=== PATIENT | male | born 1950 | race Caucasian/White ===

== ENCOUNTER 2017-08-13 12:48 | Observation (INO) | payer MEDICARE ==
[2017-08-13] MEDS ORDERED: NITROGLYCERIN OINT 1 INCH/GM PACKET TOPICAL STA (13:06)
[2017-08-13] MEDS ORDERED: ASPIRIN 81 MG PO STA (13:06)
[2017-08-13] MEDS ORDERED: KETOROLAC 60 MG/2 ML VIAL IVP STA (13:06)
--- NOTE | 2017-08-13 13:07 | ED ---
General Adult HPI - General Chief complaint: Chest Pain Stated complaint: chest pain Time Seen by Provider: 08/13/17 13:00 Source: patient, EMS, RN notes reviewed Mode of arrival: EMS Limitations: no limitations - History of Present Illness Initial comments: This is a 67-year-old male who presents to the emergency department with past medical history significant for angina hypertension high cholesterol. Patient comes in today because he has had 3 episodes of chest pain. Patient states chest pain lasted a few minutes each time and is very sweaty when it occurs. Patient denies any shortness of breath per patient denies radiation of the pain. Patient denied nausea with the pain. Patient states currently he is pain -free. Patient states some of this might be anxiety because his is in the hospital and he does not want to be home alone tonight. Patient denies any recent fever chills or cough. Patient denies any headache patient denies numbness weakness. Patient denies any lightheadedness dizziness or near syncopal episode. Patient denies any abdominal pain. Patient denies any calf tenderness or leg swelling - Related Data Home Medications Medication Instructions Recorded Confirmed Aspirin 81 mg PO DAILY 11/27/14 11/28/14 Cholecalciferol [Vitamin D3] 2,000 unit PO DAILY@1200 11/27/14 11/28/14 LORazepam [Ativan] 1 mg PO TID 11/27/14 11/28/14 Lisinopril 40 mg PO BID 11/27/14 11/28/14 PARoxetine [Paxil] 20 mg PO BID 11/27/14 11/28/14 Pantoprazole Sodium 40 mg PO BID 11/27/14 11/28/14 amLODIPine [Norvasc] 10 mg PO DAILY 11/27/14 11/28/14 rOPINIRole HCL [Requip] 2 mg PO HS 11/27/14 11/28/14 traMADol HCl [Ultram] 50 mg PO TID 11/27/14 11/28/14 Fenofibrate,Micronized 134 mg PO DAILY 11/28/14 11/28/14 [Fenofibrate] Sodium Chloride [Saline Nasal Mist] 1 spray EA NOSTRIL BID 11/28/14 11/28/14 Testosterone Cypionate 1 ml SQ Q14D 11/28/14 11/28/14 [Depo-Testosterone] Trolamine Salicylate [Aspercreme] 1 applic TOPICAL QID 11/28/14 11/28/14 Previous Rx's Medication Instructions Recorded cloNIDine HCL [Catapres] 0.1 mg PO BID #60 tab 11/28/14 Allergies Allergy/AdvReac Type Severity Reaction Status Date / Time No Known Allergies Allergy Verified 08/13/17 12:54 Review of Systems ROS Statement: Those systems with pertinent positive or pertinent negative responses have been documented in the HPI. ROS Other: All systems not noted in ROS Statement are negative. Past Medical History Past Medical History: Chest Pain / Angina, GERD/Reflux, Hyperlipidemia, Hypertension Additional Past Medical History / Comment(s): Restless Leg Syndrome, sciatica, hernia History of Any Multi-Drug Resistant Organisms: None Reported Past Surgical History: Appendectomy, Cholecystectomy Additional Past Surgical History / Comment(s): Cyst Removed from Right Hand; Broken Ankle, Past Psychological History: Anxiety Smoking Status: Former smoker Past Alcohol Use History: Occasional Past Drug Use History: None Reported General Exam - General Exam Comments Initial Comments: GENERAL: Patient is well-developed and well-nourished. Patient is nontoxic and well- hydrated and is in no acute distress. ENT: Neck is soft and supple. No significant lymphadenopathy is noted. Oropharynx is clear. Moist mucous membranes. Neck has full range of motion without eliciting any pain. EYES: The sclera were anicteric and conjunctiva were pink and moist. Extraocular movements were intact and pupils were equal round and reactive to light. Eyelids were unremarkable. PULMONARY: Unlabored respirations. Good breath sounds bilaterally. No audible rales rhonchi or wheezing was noted. CARDIOVASCULAR: There is a regular rate and rhythm without any murmurs gallops or rubs. ABDOMEN: Soft and nontender with normal bowel sounds. No palpable organomegaly was noted. There is no palpable pulsatile mass. SKIN: Skin is clear with no lesions or rashes and otherwise unremarkable. NEUROLOGIC: Patient is alert and oriented x3. Cranial nerves II through XII are grossly intact. Motor and sensory are also intact. Normal speech, volume and content. Symmetrical smile. MUSCULOSKELETAL: Normal extremities with adequate strength and full range of motion. No lower extremity swelling or edema. No calf tenderness. LYMPHATICS: No significant lymphadenopathy is noted PSYCHIATRIC: Normal psychiatric evaluation. Limitations: no limitations Course Vital Signs 08/13/17 08/13/17 12:54 14:03 Temperature 98.7 F Pulse Rate 66 59 L Respiratory 20 18 Rate Blood Pressure 171/74 183/79 O2 Sat by Pulse 96 98 Oximetry Medical Decision Making - Medical Decision Making EKG shows normal sinus rhythm at 64 bpm TX interval 164 QRS is 84 Q-T intervals 4:30 QTC is 443 per patient's EKG shows no ST segment elevation or depression or T wave abnormalities are noted. Chest x-ray shows no acute abnormality. New. Patient is chest pain-free throughout his ED course. I spoke with Dr. Munoz he wants the patient admitted and have cardiology consult - Lab Data Result diagrams: 08/13/17 13:00 08/13/17 13:00 Lab Results 08/13/17 08/13/17 08/13/17 Range/Units 13:00 13:00 13:00 WBC 13.4 H (3.8-10.6) k/uL RBC 4.77 (4.30-5.90) m/uL Hgb 14.3 (13.0-17.5) gm/dL Hct 44.6 (39.0-53.0) % MCV 93.5 (80.0-100.0) fL MCH 30.0 (25.0-35.0) pg MCHC 32.1 (31.0-37.0) g/dL RDW 14.7 (11.5-15.5) % Plt Count 323 (150-450) k/uL Neutrophils % 78 % Lymphocytes % 11 % Monocytes % 8 % Eosinophils % 1 % Basophils % 0 % Neutrophils # 10.5 H (1.3-7.7) k/uL Lymphocytes # 1.4 (1.0-4.8) k/uL Monocytes # 1.1 H (0-1.0) k/uL Eosinophils # 0.1 (0-0.7) k/uL Basophils # 0.0 (0-0.2) k/uL PT (9.0-12.0) sec INR (<1.2) APTT (22.0-30.0) sec Sodium 140 (137-145) mmol/L Potassium 3.7 (3.5-5.1) mmol/L Chloride 105 (98-107) mmol/L Carbon Dioxide 27 (22-30) mmol/L Anion Gap 8 mmol/L BUN 13 (9-20) mg/dL Creatinine 0.98 (0.66-1.25) mg/dL Est GFR (MDRD) Af Amer >60 (>60 ml/min/1.73 sqM) Est GFR (MDRD) Non-Af >60 (>60 ml/min/1.73 sqM) Glucose 113 H (74-99) mg/dL Calcium 9.1 (8.4-10.2) mg/dL Magnesium 1.9 (1.6-2.3) mg/dL Total Bilirubin 0.3 (0.2-1.3) mg/dL AST 21 (17-59) U/L ALT 30 (21-72) U/L Alkaline Phosphatase 49 (38-126) U/L Total Creatine Kinase 92 (55-170) U/L CK-MB (CK-2) 1.7 (0.0-2.4) ng/mL CK-MB (CK-2) Rel Index 1.8 Troponin I <0.012 (0.000-0.034) ng/mL Total Protein 6.8 (6.3-8.2) g/dL Albumin 3.7 (3.5-5.0) g/dL 08/13/17 Range/Units 13:00 WBC (3.8-10.6) k/uL RBC (4.30-5.90) m/uL Hgb (13.0-17.5) gm/dL Hct (39.0-53.0) % MCV (80.0-100.0) fL MCH (25.0-35.0) pg MCHC (31.0-37.0) g/dL RDW (11.5-15.5) % Plt Count (150-450) k/uL Neutrophils % % Lymphocytes % % Monocytes % % Eosinophils % % Basophils % % Neutrophils # (1.3-7.7) k/uL Lymphocytes # (1.0-4.8) k/uL Monocytes # (0-1.0) k/uL Eosinophils # (0-0.7) k/uL Basophils # (0-0.2) k/uL PT 10.9 (9.0-12.0) sec INR 1.1 (<1.2) APTT 24.4 (22.0-30.0) sec Sodium (137-145) mmol/L Potassium (3.5-5.1) mmol/L Chloride (98-107) mmol/L Carbon Dioxide (22-30) mmol/L Anion Gap mmol/L BUN (9-20) mg/dL Creatinine (0.66-1.25) mg/dL Est GFR (MDRD) Af Amer (>60 ml/min/1.73 sqM) Est GFR (MDRD) Non-Af (>60 ml/min/1.73 sqM) Glucose (74-99) mg/dL Calcium (8.4-10.2) mg/dL Magnesium (1.6-2.3) mg/dL Total Bilirubin (0.2-1.3) mg/dL AST (17-59) U/L ALT (21-72) U/L Alkaline Phosphatase (38-126) U/L Total Creatine Kinase (55-170) U/L CK-MB (CK-2) (0.0-2.4) ng/mL CK-MB (CK-2) Rel Index Troponin I (0.000-0.034) ng/mL Total Protein (6.3-8.2) g/dL Albumin (3.5-5.0) g/dL Disposition Clinical Impression: Chest pain Disposition: ADMITTED IP TO THIS HOSP Referrals: Joshua Mancia DO [Primary Care Provider] - 1-2 days Time of Disposition: 14:21
[2017-08-13 13:23] LABS: Basophils % (A) 0 %; CH 30.4; CHCM 32.7; Eosinophils # (A) 0.1 k/uL (0-0.7); Eosinophils % (A) 1 %; HCT 44.6 % (39.0-53.0); HDW 2.43; HGB 14.3 gm/dL (13.0-17.5); Luc # (Auto) 0.18; Luc % (Auto) 1; Lymphocytes # (A) 1.4 k/uL (1.0-4.8); Lymphocytes % (A) 11 %; MCHC 32.1 g/dL (31.0-37.0); MCV 93.5 fL (80.0-100.0); Mean Platelet Volume 7.5; Monocytes # (A) 1.1 k/uL (0-1.0); Monocytes % (A) 8 %; Neutrophils # (A) 10.5 k/uL (1.3-7.7); Neutrophils % (A) 78 %; RBC 4.77 m/uL (4.30-5.90); RDW 14.7 % (11.5-15.5); WBC 13.4 k/uL (3.8-10.6)
[2017-08-13 13:33] LABS: INR 1.1 (<1.2); Partial Thromboplastin Time 24.4 sec (22.0-30.0); Prothrombin Time 10.9 sec (9.0-12.0)
[2017-08-13 13:35] LABS: ALT 30 U/L (21-72); AST 21 U/L (17-59); Alkaline Phosphatase 49 U/L (38-126); Anion Gap 8 mmol/L; Blood Urea Nitrogen 13 mg/dL (9-20); Calcium 9.1 mg/dL (8.4-10.2); Carbon Dioxide 27 mmol/L (22-30); Chloride 105 mmol/L (98-107); Glucose 113 mg/dL (74-99); Magnesium 1.9 mg/dL (1.6-2.3); Non-African American GFR(MDRD) >60 (>60 ml/min/1.73 sqM); Potassium 3.7 mmol/L (3.5-5.1); Sodium 140 mmol/L (137-145); Total Bilirubin 0.3 mg/dL (0.2-1.3); Total Protein 6.8 g/dL (6.3-8.2)
[2017-08-13 13:49] LABS: Creatine Kinase 92 U/L (55-170)
--- NOTE | 2017-08-13 13:50 | XR ---
EXAMINATION TYPE: XR chest 2V DATE OF EXAM: 08/13/2017 COMPARISON: 11/27/2014 INDICATION: Chest pain TECHNIQUE: Frontal and lateral views of the chest are obtained. FINDINGS: The heart size is normal. The pulmonary vasculature is normal. The lungs are clear. IMPRESSION: 1. No acute pulmonary process.
[2017-08-13 14:02] LABS: Creatine Kinase MB 1.7 ng/mL (0.0-2.4); Troponin I <0.012 ng/mL (0.000-0.034)
[2017-08-13] MEDS ORDERED: NITROGLYCERIN SL TABS 0.4 MG TAB SUBLINGUAL PRN (14:23)
--- NOTE | 2017-08-13 15:10 | P.HPIM ---
History of Present Illness 14-year-old male came in today with his 1 and complaints of low back pain radiating to the back of legs. Patient denied any weakness denied loss of bowel or bladder continence patient was complaining of chest pain in the left side of the chest happened nature lasted for 4 minutes about 6 x 10 in severity nonradiating patient is morbidly obese appears to have an anxiety episode give me a questionable history of nausea denied and diaphoresis took aspirin which helped his pain he believes. Patient's was admitted to my service earlier today. Patient denied any fever chills patient any cough runny nose. EKG did not show any significant acute ST-T wave changes patient is morbidly obese never tested for sleep apnea, his chest pain is nonpleuritic completely resolved at this point of time not associated with food. Review of Systems REVIEW OF SYSTEMS: CONSTITUTIONAL: No fever, no malaise, no fatigue. HEENT: No recent visual problems or hearing problems. Denied any sore throat. CARDIOVASCULAR: No orthopnea, PND, no palpitations, no syncope. PULMONARY: No shortness of breath, no cough, no hemoptysis. GASTROINTESTINAL: No diarrhea, no nausea, no vomiting, no abdominal pain. Normoactive bowel sounds. NEUROLOGICAL: No headaches, no weakness, no numbness. HEMATOLOGICAL: Denies any bleeding or petechiae. GENITOURINARY: Denies any burning micturition, frequency, or urgency. MUSCULOSKELETAL/RHEUMATOLOGICAL: Denies any joint pain, swelling, or any muscle pain. ENDOCRINE: Denies any polyuria or polydipsia. The rest of the 14-point review of systems is negative. Past Medical History Past Medical History: Chest Pain / Angina, GERD/Reflux, Hyperlipidemia, Hypertension Additional Past Medical History / Comment(s): Restless Leg Syndrome, sciatica, hernia History of Any Multi-Drug Resistant Organisms: None Reported Past Surgical History: Appendectomy, Cholecystectomy Additional Past Surgical History / Comment(s): Cyst Removed from Right Hand; Broken Ankle, Past Psychological History: Anxiety Smoking Status: Former smoker Past Alcohol Use History: Occasional Past Drug Use History: None Reported Medications and Allergies Home Medications Medication Instructions Recorded Confirmed Type LORazepam [Ativan] 1 mg PO TID 11/27/14 08/13/17 History Lisinopril 40 mg PO BID 11/27/14 08/13/17 History PARoxetine [Paxil] 20 mg PO BID 11/27/14 08/13/17 History amLODIPine [Norvasc] 10 mg PO DAILY 11/27/14 08/13/17 History traMADol HCl [Ultram] 50 mg PO TID 11/27/14 08/13/17 History Fenofibrate,Micronized 134 mg PO DAILY 11/28/14 08/13/17 History [Fenofibrate] Cetirizine HCl [Zyrtec] 10 mg PO DAILY 08/13/17 08/13/17 History Oxybutynin Chloride [Oxybutynin 15 mg PO DAILY 08/13/17 08/13/17 History Chloride ER] Ranitidine HCl [Zantac] 300 mg PO HS 08/13/17 08/13/17 History Tamsulosin HCl [Flomax] 0.8 mg PO DAILY 08/13/17 08/13/17 History Allergies Allergy/AdvReac Type Severity Reaction Status Date / Time atorvastatin [From Lipitor] Allergy Unknown Verified 08/13/17 14:55 Physical Exam Vitals: Vital Signs Temp Pulse Resp BP Pulse Ox 08/13/17 14:03 59 L 18 183/79 98 08/13/17 12:54 98.7 F 66 20 171/74 96 Intake and Output 08/13/17 08/13/17 08/13/17 06:59 14:59 22:59 Other: Weight 117.934 kg Patient Weight 08/14/17 06:59 Weight 117.934 kg PHYSICAL EXAMINATION: GENERAL: The patient is alert and oriented x3, not in any acute distress. Well developed, well nourished. HEENT: Pupils are round and equally reacting to light. EOMI. No scleral icterus. No conjunctival pallor. Normocephalic, atraumatic. No pharyngeal erythema. No thyromegaly. CARDIOVASCULAR: S1 and S2 present. No murmurs, rubs, or gallops. PULMONARY: Chest is clear to auscultation, no wheezing or crackles. ABDOMEN: Soft, nontender, nondistended, normoactive bowel sounds. No palpable organomegaly. MUSCULOSKELETAL: No joint swelling or deformity. EXTREMITIES: No cyanosis, clubbing, or pedal edema. NEUROLOGICAL: Gross neurological examination did not reveal any focal deficits. SKIN: No rashes. Results CBC & Chem 7: 08/13/17 13:00 08/13/17 13:00 Labs: Abnormal Lab Results - Last 24 Hours (Table) 08/13/17 08/13/17 Range/Units 13:00 13:00 WBC 13.4 H (3.8-10.6) k/uL Neutrophils # 10.5 H (1.3-7.7) k/uL Monocytes # 1.1 H (0-1.0) k/uL Glucose 113 H (74-99) mg/dL Assessment and Plan Plan: #1 chest pain: Patient will admitted to rule out a acute coronary syndromes will repeat 2 more sets of troponins, EKG, cardiology was consulted. #2 morbid obesity: Counseling was provided #3 chronic low back pain without any red flag signs patient will continue his pain medications and physical therapy as an outpatient. #4 hypertension #5 depression #6 gastroesophageal reflux disease #7 hyperlipidemia #8 leukocytosis: Reactive without any signs or symptoms of infection #9 benign prostatic hypertrophy For his chronic medical problems patient will be continued on appropriate home medications
[2017-08-13] MEDS ORDERED: LORazepam 2 MG/ML INJ IV STA (15:11)
[2017-08-13] MEDS ORDERED: hydrALAZINE HCL 20 MG/ML 1 ML VIAL IVP STA (15:11)
[2017-08-13] MEDS: NITROGLYCERIN OINT 1 INCH/GM PACKET TOPICAL SCH (17:51)
[2017-08-13] MEDS: traMADol 50 MG TAB PO SCH ×2 (18:22→22:04)
[2017-08-13 19:10] LABS: Creatine Kinase 87 U/L (55-170)
[2017-08-13 19:23] LABS: Creatine Kinase MB 1.4 ng/mL (0.0-2.4); Troponin I <0.012 ng/mL (0.000-0.034)
[2017-08-13] MEDS ORDERED: LISINOPRIL 20 MG TAB PO SCH (21:00)
[2017-08-13] MEDS ORDERED: FAMOTIDINE 20 MG TAB PO SCH (21:00)
[2017-08-13] MEDS: PARoxetine 20 MG TAB PO SCH (22:02)
[2017-08-14] MEDS ORDERED: hydrALAZINE HCL 20 MG/ML 1 ML VIAL IVP STA (00:24)
[2017-08-14] MEDS: LORazepam 1 MG TAB PO PRN ×2 (00:24→07:27)
[2017-08-14] MEDS ORDERED: HYDROmorphone 1 MG/ML 1 ML SYRINGE IVP PRN (00:33)
[2017-08-14] MEDS ORDERED: HYDROmorphone 0.5 MG/0.5 ML SYRINGE IVP PRN (01:16)
[2017-08-14 01:33] LABS: Cholesterol 168 mg/dL (<200); HDL Cholesterol 47 mg/dL (40-60)
[2017-08-14 01:38] LABS: Creatine Kinase 93 U/L (55-170)
[2017-08-14 01:51] LABS: Creatine Kinase MB 1.9 ng/mL (0.0-2.4); Troponin I <0.012 ng/mL (0.000-0.034)
[2017-08-14] MEDS: NITROGLYCERIN OINT 1 INCH/GM PACKET TOPICAL SCH ×3 (06:19→12:14)
[2017-08-14] MEDS: traMADol 50 MG TAB PO SCH (07:28)
[2017-08-14] MEDS ORDERED: OXYBUTYNIN 15 MG TAB.ER.24 PO SCH (09:00)
[2017-08-14] MEDS ORDERED: ASPIRIN 325 MG TAB PO SCH (09:00)
[2017-08-14] MEDS ORDERED: FENOFIBRATE 160 MG TAB PO SCH (09:00)
[2017-08-14] MEDS ORDERED: amLODIPine 10 MG TAB PO SCH (09:00)
[2017-08-14] MEDS ORDERED: TAMSULOSIN 0.4 MG CAP.ER.24H PO SCH (09:00)
[2017-08-14] MEDS ORDERED: LORATADINE 10 MG TAB PO SCH (09:00)
[2017-08-14 09:18] VITALS: TEMP 97.1
--- NOTE | 2017-08-14 09:33 | P.CRDCN ---
History of Present Illness Consult date: 08/14/17 Requesting physician: Alejandra Munoz Consult reason: chest pain Chief complaint: Chest pain History of present illness: This is a 67-year-old gentleman with history of hypertension, hyperlipidemia, obesity, who unfortunately just lost his this morning, he presented to the hospital yesterday with symptoms of chest discomfort. He describes his discomfort as a poking sensation in his left upper chest area that comes and goes. Urology consultation was requested for this as well as accelerated hypertension. EKG on arrival here showed a normal sinus rhythm with nonspecific ST-T wave changes. Chest x-ray did not reveal any acute cardiopulmonary process. The pressure on arrival 170/70 with a heart rate in the 60s, 96% on room air. The pressure this morning 178/80 with a heart rate in the 90s, temperature 97.5. White blood cell count 13.4, hemoglobin 14.3, potassium 3.7, BUN 13, troponins have been negative 3. creatinine 0.9. Cholesterol 168, LDL 103, triglycerides 89, HDL 47. As mentioned previously in this note, patient's this morning, he is quite emotional at the time of my examination, quite eager to be discharged home to be with family. Past Medical History Past Medical History: Asthma, Chest Pain / Angina, CVA/TIA, GERD/Reflux, Hyperlipidemia, Hypertension, Osteoarthritis (OA) Additional Past Medical History / Comment(s): Restless Leg Syndrome, sciatica, hiatal hernia, tia 8 years ago, past ulcers, past conscussion when younger and played football. History of Any Multi-Drug Resistant Organisms: None Reported Past Surgical History: Appendectomy, Cholecystectomy, Heart Catheterization, Tonsillectomy Additional Past Surgical History / Comment(s): Cyst Removed from Right Hand; Broken Ankle, colonoscopy/polypectomy(benign) Past Anesthesia/Blood Transfusion Reactions: Motion Sickness Additional Past Anesthesia/Blood Transfusion Reaction / Comment(s): clausterphobia Smoking Status: Former smoker - Past Family History Mother Family Medical History: Diabetes Mellitus Additional Family Medical History / Comment(s): at age 86 Father Family Medical History: Cancer Additional Family Medical History / Comment(s): throat cancer - age 50 Medications and Allergies Home Medications Medication Instructions Recorded Confirmed Type LORazepam [Ativan] 1 mg PO TID 11/27/14 08/13/17 History Lisinopril 40 mg PO BID 11/27/14 08/13/17 History PARoxetine [Paxil] 20 mg PO BID 11/27/14 08/13/17 History amLODIPine [Norvasc] 10 mg PO DAILY 11/27/14 08/13/17 History traMADol HCl [Ultram] 50 mg PO TID 11/27/14 08/13/17 History Fenofibrate,Micronized 134 mg PO DAILY 11/28/14 08/13/17 History [Fenofibrate] Cetirizine HCl [Zyrtec] 10 mg PO DAILY 08/13/17 08/13/17 History Oxybutynin Chloride [Oxybutynin 15 mg PO DAILY 08/13/17 08/13/17 History Chloride ER] Ranitidine HCl [Zantac] 300 mg PO HS 08/13/17 08/13/17 History Tamsulosin HCl [Flomax] 0.8 mg PO DAILY 08/13/17 08/13/17 History Allergies Allergy/AdvReac Type Severity Reaction Status Date / Time atorvastatin [From Lipitor] Allergy Unknown Verified 08/13/17 14:55 Physical Exam Vitals: Vital Signs Temp Pulse Pulse Resp BP BP Pulse Ox 08/14/17 07:30 97.1 F L 80 20 194/93 94 L 08/14/17 03:40 98 18 179/81 92 L 08/14/17 02:40 72 18 190/85 96 08/14/17 00:00 97.5 F L 79 18 208/79 96 08/13/17 20:00 97.3 F L 64 18 182/77 96 08/13/17 18:19 142/63 08/13/17 16:55 97.1 F L 82 16 172/75 97 08/13/17 16:13 98.5 F 08/13/17 16:00 77 18 168/66 95 08/13/17 15:33 62 18 190/80 98 08/13/17 15:00 62 18 200/87 98 08/13/17 14:03 59 L 18 183/79 98 08/13/17 12:54 98.7 F 66 20 171/74 96 Intake and Output 08/13/17 08/14/17 08/14/17 22:59 06:59 14:59 Intake Total 222 Output Total 400 Balance 222 -400 Intake: Oral 222 Output: Urine 400 Other: Voiding Method Toilet Toilet # Voids 1 2 Weight 119.4 kg PHYSICAL EXAMINATION: HEENT: Head is atraumatic, normocephalic. Pupils equal, round. Neck is supple. There is no elevated jugular venous pressure. HEART EXAMINATION: Heart S1, S2 normal. No murmur or gallop heard. CHEST EXAMINATION: Lungs are clear to auscultation and precussion. No chest wall tenderness is noted on palpation or with deep breathing. ABDOMEN: Soft, obese, nontender. Bowel sounds are heard. No organomegaly noted. EXTREMITIES:[ 2+ peripheral pulses with no evidence of peripheral edema and no calf tenderness noted]. NEUROLOGIC [patient is awake, alert and oriented -3.] . Results 08/13/17 13:00 08/13/17 13:00 Cardiac Enzymes 08/13/17 08/13/17 08/13/17 Range/Units 13:00 13:00 18:46 AST 21 (17-59) U/L CK-MB (CK-2) 1.7 1.4 (0.0-2.4) ng/mL Troponin I <0.012 <0.012 (0.000-0.034) ng/mL 08/14/17 Range/Units 00:27 AST (17-59) U/L CK-MB (CK-2) 1.9 (0.0-2.4) ng/mL Troponin I <0.012 (0.000-0.034) ng/mL Coagulation 08/13/17 Range/Units 13:00 PT 10.9 (9.0-12.0) sec APTT 24.4 (22.0-30.0) sec Lipids 08/14/17 Range/Units 00:27 Triglycerides 89 (<150) mg/dL Cholesterol 168 (<200) mg/dL HDL Cholesterol 47 (40-60) mg/dL CBC 08/13/17 Range/Units 13:00 WBC 13.4 H (3.8-10.6) k/uL RBC 4.77 (4.30-5.90) m/uL Hgb 14.3 (13.0-17.5) gm/dL Hct 44.6 (39.0-53.0) % Plt Count 323 (150-450) k/uL Comprehensive Metabolic Panel 08/13/17 Range/Units 13:00 Sodium 140 (137-145) mmol/L Potassium 3.7 (3.5-5.1) mmol/L Chloride 105 (98-107) mmol/L Carbon Dioxide 27 (22-30) mmol/L BUN 13 (9-20) mg/dL Creatinine 0.98 (0.66-1.25) mg/dL Glucose 113 H (74-99) mg/dL Calcium 9.1 (8.4-10.2) mg/dL AST 21 (17-59) U/L ALT 30 (21-72) U/L Alkaline Phosphatase 49 (38-126) U/L Total Protein 6.8 (6.3-8.2) g/dL Albumin 3.7 (3.5-5.0) g/dL Current Medications Generic Name Dose Route Start Last Admin Trade Name Freq PRN Reason Stop Dose Admin Amlodipine Besylate 10 mg 08/14/17 09:00 Norvasc PO DAILY [facility] Aspirin 81 mg 08/15/17 09:00 Aspirin PO DAILY [facility] Famotidine 40 mg 08/13/17 21:00 08/13/17 22:01 Pepcid PO 40 mg HS DESTINI Administration Fenofibrate 160 mg 08/14/17 09:00 Lofibra PO DAILY [facility] Hydromorphone HCl 0.5 mg 08/14/17 01:16 08/14/17 01:22 Dilaudid Syringe IVP 0.5 mg Q6HR PRN Administration Moderate to Severe Pain Lisinopril 40 mg 08/13/17 21:00 08/13/17 22:01 Zestril PO 40 mg BID DESTINI Administration Loratadine 10 mg 08/14/17 09:00 Claritin PO DAILY DESTINI Lorazepam 1 mg 08/13/17 15:09 08/14/17 07:27 Ativan PO 1 mg TID PRN Administration Anxiety Nitroglycerin 1 inch 08/13/17 18:00 08/14/17 06:20 Nitro-Bid Oint TOPICAL Not Given Q6HR [facility] Nitroglycerin 0.4 mg 08/13/17 14:23 Nitrostat SUBLINGUAL Q5M PRN Chest Pain Oxybutynin Chloride 15 mg 08/14/17 09:00 Ditropan Xl PO DAILY [facility] Paroxetine HCl 20 mg 08/13/17 21:00 08/13/17 22:02 Paxil PO 20 mg BID DESTINI Administration Tamsulosin HCl 0.8 mg 08/14/17 09:00 Flomax PO DAILY DESTINI Tramadol HCl 50 mg 08/13/17 16:00 08/14/17 07:28 Ultram PO 50 mg TID DESTINI Administration Intake and Output 08/13/17 08/14/17 08/14/17 22:59 06:59 14:59 Intake Total 222 Output Total 400 Balance 222 -400 Intake: Oral 222 Output: Urine 400 Other: Voiding Method Toilet Toilet # Voids 1 2 Weight 119.4 kg 08/13/17 13:00 08/13/17 13:00 EKG Interpretations (text) EKG shows a normal sinus rhythm with nonspecific ST-T wave changes. Assessment and Plan Plan: Assessment and plan #1 chest pain, atypical in nature, EKG shows normal sinus rhythm with no acute changes. Troponins are negative 3. Patient did have a stress test performed in 2014 that was negative for any reversible ischemia, he also had an echo performed at that time which revealed a normal left ventricular systolic function. #2 accelerated hypertension #3 history of hypertension #4 hyperlipidemia # 5 obesity #6 GERD #7 history of sciatica Plan We will request an echocardiogram with Doppler study be performed, we will also make medication adjustments to get more optimal blood pressure control. Patient is quite eager to be discharged home to be with his family as his just this morning. Recommend discharging the patient home after adjustments have been made in his blood pressure medications, he may have an outpatient stress test down the road in the next couple of weeks. Further recommendations to follow. DNP note has been reviewed, I agree with a documented findings and plan of care. Patient was seen and examined.
[2017-08-14] MEDS ORDERED: ALPRAZolam 0.25 MG TAB PO SCH (09:45)
[2017-08-14] MEDS ORDERED: cloNIDine HCL 0.2 MG TAB PO SCH ×2 (09:52→21:00)
[2017-08-14] MEDS ORDERED: LISINOPRIL 20 MG TAB PO SCH ×2 (10:00→21:00)
[2017-08-14] MEDS: PARoxetine 20 MG TAB PO SCH (10:12)
[2017-08-14 11:24] VITALS: BP 169/77; PULSE 88; RESP 16
--- NOTE | 2017-08-14 13:36 | ECHOF ---
Referral Reason:chest pain MEASUREMENTS -------- HEIGHT: 160.0 cm WEIGHT: 119.3 kg BP: RVIDd: 3.8 cm (< 3.3) IVSd: 1.6 cm (0.6 - 1.1) LVIDd: 4.7 cm (3.9 - 5.3) LVPWd: 0.9 cm (0.6 - 1.1) IVSs: 1.4 cm LVIDs: 3.2 cm LVPWs: 0.9 cm LAESV Index (A-L): 23.87 ml/m Ao Diam: 3.0 cm (2.0 - 3.7) LA Diam: 3.5 cm (2.7 - 3.8) MV E Francois: 0.51 m/s MV DecT: 129 ms MV A Francois: 0.95 m/s MV E/A Ratio: 0.54 RAP: 5.00 mmHg RVSP: 15.76 mmHg FINDINGS -------- Sinus rhythm. Morbid Obesity This was a techncally difficult study with suboptimal views, , Definity utilized for enhancement of images. There is mild concentric left ventricular hypertrophy. Overall left ventricular systolic function i s low-normal with, an EF between 50 - 55 %. The right ventricle is normal in size. Normal LA size by volume 22+/-6 ml/m2. The right atrial size is normal. The aortic valve was not well visualized. Mild mitral regurgitation is present. The tricuspid valve was not well visualized. The right ventricular systolic pressure, as measured b y Doppler, is 15.76mmHg. The pulmonic valve was not well visualized. The aortic root size is normal. Echo free space indicative of a pericardial fat pad. CONCLUSIONS -------- 1. Morbid Obesity 2. This was a techncally difficult study with suboptimal views, , Definity utilized for enhancement o f images. 3. There is mild concentric left ventricular hypertrophy. 4. Overall left ventricular systolic function is low-normal with, an EF between 50 - 55 %. 5. The right ventricle is normal in size. 6. The aortic valve was not well visualized. 7. The tricuspid valve was not well visualized. 8. The right ventricular systolic pressure, as measured by Doppler, is 15.76mmHg. 9. The pulmonic valve was not well visualized. 10. The aortic root size is normal. 11. Echo free space indicative of a pericardial fat pad. OPERATOR SPECIALIST COMMUNICATIONS: Millicetn Moy RDCS
--- NOTE | 2017-08-14 16:49 | P.DS ---
Providers Date of admission: 08/13/17 14:24 Attending physician: Alejandra Munoz Consults: 08/13/17 14:23 Consult Physician Urgent Consulting Provider: [facility] Consult Reason/Comments: Chest pain Do you want consulting provider notified?: Yes Primary care physician: Joshua Mancia Hospital Course: Was admitted for chest pain rule out acute coronary syndromes patient was evaluated by cardiology patient chest pain is most related to anxiety episode patient has a significant life event, spousal demise. And ALLERGIES recommending outpatient stress us patient blood pressures elevated and I'm adding Coreg to his regimen patient will be discharged today and will get outpatient stress test please refer to my dictation of H&P for further details of his other medical problems and hospitalization course Plan - Discharge Summary Discharge Rx Participant: No New Discharge Prescriptions: New Carvedilol [Coreg] 6.25 mg PO BID #60 tablet Lisinopril [Zestril] 20 mg PO BID tab Continue PARoxetine [Paxil] 20 mg PO BID LORazepam [Ativan] 1 mg PO TID amLODIPine [Norvasc] 10 mg PO DAILY traMADol HCl [Ultram] 50 mg PO TID Fenofibrate,Micronized [Fenofibrate] 134 mg PO DAILY Cetirizine HCl [Zyrtec] 10 mg PO DAILY Oxybutynin Chloride [Oxybutynin Chloride ER] 15 mg PO DAILY Ranitidine HCl [Zantac] 300 mg PO HS Tamsulosin HCl [Flomax] 0.8 mg PO DAILY Discontinued Lisinopril 40 mg PO BID Discharge Medication List LORazepam [Ativan] 1 mg PO TID 11/27/14 [History] PARoxetine [Paxil] 20 mg PO BID 11/27/14 [History] amLODIPine [Norvasc] 10 mg PO DAILY 11/27/14 [History] traMADol HCl [Ultram] 50 mg PO TID 11/27/14 [History] Fenofibrate,Micronized [Fenofibrate] 134 mg PO DAILY 11/28/14 [History] Cetirizine HCl [Zyrtec] 10 mg PO DAILY 08/13/17 [History] Oxybutynin Chloride [Oxybutynin Chloride ER] 15 mg PO DAILY 08/13/17 [History] Ranitidine HCl [Zantac] 300 mg PO HS 08/13/17 [History] Tamsulosin HCl [Flomax] 0.8 mg PO DAILY 08/13/17 [History] Carvedilol [Coreg] 6.25 mg PO BID #60 tablet 08/14/17 [Rx] Lisinopril [Zestril] 20 mg PO BID tab 08/14/17 [Rx] Follow up Appointment(s)/Referral(s): Maricel Wills MD [STAFF PHYSICIAN] - 2 Weeks (Follow up for planned outpatient stress test. Offic will call with an appointment date and time. ) Joshua Mancia DO [Primary Care Provider] - 08/19/17 10:20 am Patient Instructions/Handouts: Angina (DC) Discharge Disposition: HOME SELF-CARE
[2017-08-15] MEDS ORDERED: ASPIRIN 81 MG PO SCH (09:00)
== END 2017-08-14 12:29 | disposition home or self-care (01) ==
LOC: EC 12:48 → 6SEL 14:24
PROVIDERS: ADMIT Internal Medicine; ATTEND Internal Medicine
DX: R07.89 Other chest pain (principal); R61 Generalized hyperhidrosis; E66.01 Morbid (severe) obesity due to excess calories; Z68.42 Body mass index [BMI] 45.0-49.9, adult; G89.29 Other chronic pain; M54.5 Low back pain; I10 Essential (primary) hypertension; F32.9 Major depressive disorder, single episode, unspecified; K21.9 Gastro-esophageal reflux disease without esophagitis; E78.5 Hyperlipidemia, unspecified; E78.00 Pure hypercholesterolemia, unspecified; D72.829 Elevated white blood cell count, unspecified; N40.0 Benign prostatic hyperplasia without lower urinary tract symptoms; G25.81 Restless legs syndrome; M54.30 Sciatica, unspecified side; Z79.82 Long term (current) use of aspirin; Z79.899 Other long term (current) drug therapy; F41.9 Anxiety disorder, unspecified; Z87.891 Personal history of nicotine dependence; Z88.8 Allergy status to other drugs, medicaments and biological substances; Z86.73 Personal history of transient ischemic attack (TIA), and cerebral infarction without residual deficits; J45.909 Unspecified asthma, uncomplicated; M19.90 Unspecified osteoarthritis, unspecified site; Z83.3 Family history of diabetes mellitus; Z80.8 Family history of malignant neoplasm of other organs or systems
CPT/HCPCS: 99285; 96374; 96375 ×4; 96376; 36415; 93005; 85379; 80061; 80053; 82550 ×2; 82553 ×2; 83735; 84484 ×2; 85025; 85610; 85730; 71020; G0378 ×2; C8929; J2060; J0360 ×2; J1885; Q9957; J1170; 93306

== ENCOUNTER 2017-10-29 10:21 | Day surgery (SDC) | payer MEDICARE ==
[2017-10-22 09:27] VITALS: BMI 37.8
[~2017-10-29 10:21] MED LIST: ALPRAZolam 0.25 MG TAB PO PRN; ALPRAZolam 0.5 MG TAB PO PRN; ASPIRIN 325 MG TAB PO STA; NITROGLYCERIN SL TABS 0.4 MG TAB SUBLINGUAL PRN; SODIUM CHLORIDE 0.9% 1,000 ML in EMPTY BAG 1 BAG IV ONE
[2017-10-29 11:23] LABS: Basophils % (A) 1 %; Eosinophils # (A) 0.1 k/uL (0-0.7); Eosinophils % (A) 1 %; HCT 38.9 % (39.0-53.0); HGB 12.6 gm/dL (13.0-17.5); Lymphocytes # (A) 1.6 k/uL (1.0-4.8); Lymphocytes % (A) 19 %; MCH 30.4 pg (25.0-35.0); MCHC 32.5 g/dL (31.0-37.0); MCV 93.6 fL (80.0-100.0); Mean Platelet Volume 7.3; Monocytes # (A) 0.6 k/uL (0-1.0); Monocytes % (A) 7 %; Neutrophils % (A) 70 %; Platelet Count 303 k/uL (150-450); RBC 4.15 m/uL (4.30-5.90); WBC 8.5 k/uL (3.8-10.6)
[2017-10-29] MEDS ORDERED: LIDOCAINE 2% INJ 20 MG/ML (20 ML MDV) ONE (11:40)
[2017-10-29] MEDS ORDERED: fentaNYL (PF) 50 MCG/ML 2 ML AMP ONE (11:40)
[2017-10-29 11:43] LABS: Anion Gap 8 mmol/L; Blood Urea Nitrogen 22 mg/dL (9-20); Calcium 9.4 mg/dL (8.4-10.2); Carbon Dioxide 31 mmol/L (22-30); Chloride 100 mmol/L (98-107); Glucose 109 mg/dL (74-99); Potassium 4.1 mmol/L (3.5-5.1); Sodium 139 mmol/L (137-145)
[2017-10-29] MEDS ORDERED: MIDAZOLAM 2 MG/2 ML VIAL ONE (11:45)
[2017-10-29] MEDS ORDERED: fentaNYL (PF) 50 MCG/ML 2 ML AMP IVP ONE (11:47)
[2017-10-29] MEDS ORDERED: LIDOCAINE 2% INJ 20 MG/ML SQ ONE (11:48)
[2017-10-29] MEDS ORDERED: MIDAZOLAM 2 MG/2 ML VIAL IVP ONE (11:48)
[2017-10-29] MEDS ORDERED: IODIXANOL 320 MG/ML 100 ML INTRAARTER ONE (12:08)
[2017-10-29] MEDS ORDERED: SODIUM CHLORIDE 0.9% 1,000 ML IV SCH (12:15)
[2017-10-29] MEDS ORDERED: RX INFO: IV CONTRAST WAS GIVEN 1 EACH MISC MISCELLANE PRN (12:15)
--- NOTE | 2017-10-29 12:21 | P.PCN ---
Date of Procedure: 10/29/17 Postoperative Diagnosis: Chest pain and positive stress test Procedure(s) Performed: Left heart catheterization without left ventricular tomography Description of Procedure: HISTORY: This is a 67-year-old gentleman with history of hypertension, hypercholesteremia and obesity who has been having chest pains. Stress test was performed which showed reversible ischemia in the inferior segments. Patient is advised to have cardiac catheterization for definitive diagnosis. CONSENT:I have discussed the risks, benefits and alternative therapies for the above-mentioned procedure and for both sedation/analgesia as well as necessary blood product administration, if indicated, as they pertain to this patient. The patient has indicated understanding and acceptance of the risks and procedures discussed. PROCEDURE: Patient was brought to the lab in a fasting state. Patient was given some IV sedation. The right groin is infiltrated with lidocaine and right femoral artery was entered using Seldinger technique. A 6-Mohawk catheter was left in place and selective coronary arteriography and left ventriculography was performed. Patient tolerated the procedure well. Femoral angiogram was performed and Angio-Seal was applied for hemostasis. No immediate complications were noted and patient was transferred to [facility] in a stable condition Conscious Sedation: Versed 1 mg Fentanyl 50 g Duration 31minutes HEMODYNAMICS: The aortic pressure is about 130/80. Left ankle end-diastolic pressure is 16-20. There was no gradient across the aortic valve SELECTIVE CORONARY ARTERIOGRAPHY: LEFT MAIN: Normal length and free of any occlusive disease THE LEFT ANTERIOR DESCENDING CORONARY ARTERY:. This is a good caliber vessel giving rise to small septal and diagonal branches. The LAD and branches are free of occlusive disease THE LEFT CIRCUMFLEX AND IS CORONARY ARTERY:. This is a good caliber vessel giving rise to good-sized OM branch and also PDA. Seems to be dominant vessel. Free of any occlusive disease THE RIGHT CORONARY ARTERY:. This is a codominant vessel and good caliber, giving rise to PDA and PLV. Free of any occlusive disease LEFT VENTRICULOGRAPHY:. Not performed FINAL IMPRESSION:, Normal coronary arteries. Mildly elevated end-diastolic pressures PLAN: Maximum medical therapy and this factor modification PROGNOSIS:. Fair
[2017-10-29 20:22] VITALS: BP 124/71; PULSE 68; RESP 16; TEMP 98.4
== END 2017-10-29 20:15 | disposition home or self-care (01) ==
LOC: CATHCVL 10:21 → 3OBS 12:10 → CATHCVL 20:15
PROVIDERS: ATTEND Internal Medicine Cardiovascular Disease
DX: R94.39 Abnormal result of other cardiovascular function study (principal); R07.89 Other chest pain; I10 Essential (primary) hypertension; E78.00 Pure hypercholesterolemia, unspecified; E66.9 Obesity, unspecified; Z68.42 Body mass index [BMI] 45.0-49.9, adult; Z79.82 Long term (current) use of aspirin; Z79.52 Long term (current) use of systemic steroids; Z79.899 Other long term (current) drug therapy; Z87.891 Personal history of nicotine dependence
CPT/HCPCS: 93458; 80048; 85025; C1894; C1769; J2001; J2250; Q9967; J3010

== ENCOUNTER 2018-02-24 23:25 | Inpatient (IN) | payer MEDICARE ==
[2018-02-25] MEDS ORDERED: SODIUM CHLORIDE 0.9% 1,000 ML IV ONE (00:19)
[2018-02-25 00:30] LABS: Glucose,Whole Blood 133 mg/dL (75-99)
[2018-02-25 00:38] LABS: Basophils % (A) 0 %; Eosinophils # (A) 0.1 k/uL (0-0.7); Eosinophils % (A) 1 %; HCT 41.1 % (39.0-53.0); HGB 13.8 gm/dL (13.0-17.5); Lymphocytes % (A) 7 %; MCH 29.5 pg (25.0-35.0); MCHC 33.6 g/dL (31.0-37.0); MCV 87.8 fL (80.0-100.0); Monocytes # (A) 0.7 k/uL (0-1.0); Monocytes % (A) 5 %; Neutrophils # (A) 12.4 k/uL (1.3-7.7); Neutrophils % (A) 86 %; Platelet Count 236 k/uL (150-450); RBC 4.68 m/uL (4.30-5.90); RDW 12.8 % (11.5-15.5); WBC 14.3 k/uL (3.8-10.6)
[2018-02-25 00:50] LABS: INR 1.2 (<1.2); Prothrombin Time 11.2 sec (9.0-12.0)
[2018-02-25 00:51] LABS: Partial Thromboplastin Time 21.8 sec (22.0-30.0)
--- NOTE | 2018-02-25 00:51 | ED ---
General Adult HPI - General Chief complaint: Recheck/Abnormal Lab/Rx Stated complaint: Withdrawals Time Seen by Provider: 02/25/18 00:04 Source: family Mode of arrival: wheelchair Limitations: no limitations - History of Present Illness Initial comments: Years old gentleman presents with a confusion family said he has been on them larger dose of Neurontin that caused him some swelling of the legs that dose was decreased and then finally it was discontinued he has been more confused for the last few weeks he repeats over and over and over asking for help family said he also has a history of anxiety and they think his anxiety is getting worse. When I asked him myself he said he just don't feel right he denies any headaches no blurred vision no stiff neck no chest pain or shortness of breath no abdominal pain - Related Data Home Medications Medication Instructions Recorded Confirmed PARoxetine [Paxil] 20 mg PO BID 11/27/14 10/29/17 amLODIPine [Norvasc] 10 mg PO 1400 11/27/14 10/29/17 Fenofibrate,Micronized 134 mg PO HS 11/28/14 10/29/17 [Fenofibrate] Cetirizine HCl [Zyrtec] 10 mg PO DAILY 08/13/17 10/29/17 Oxybutynin Chloride [Oxybutynin 30 mg PO HS 08/13/17 10/29/17 Chloride ER] Ranitidine HCl [Zantac] 300 mg PO HS 08/13/17 10/29/17 Tamsulosin HCl [Flomax] 0.8 mg PO HS 08/13/17 10/29/17 Aspirin [Adult Low Dose Aspirin EC] 81 mg PO QAM 10/22/17 10/29/17 Hydrochlorothiazide 25 mg PO DAILY 10/22/17 10/29/17 Melatonin 3 mg PO HS PRN 10/22/17 10/29/17 Naproxen 500 mg PO BID 10/22/17 10/29/17 traMADol HCl [Ultram] 50 mg PO TID 10/22/17 10/29/17 Baclofen 10 mg PO TID 10/26/17 10/29/17 Gabapentin [Neurontin] 300 mg PO TID 10/26/17 10/29/17 Previous Rx's Medication Instructions Recorded Carvedilol [Coreg] 6.25 mg PO BID #60 tablet 08/14/17 Lisinopril [Zestril] 20 mg PO BID tab 08/14/17 Allergies Allergy/AdvReac Type Severity Reaction Status Date / Time atorvastatin [From Lipitor] Allergy Unknown Verified 10/22/17 09:11 codeine Allergy Unknown Verified 10/22/17 09:11 Review of Systems ROS Statement: Those systems with pertinent positive or pertinent negative responses have been documented in the HPI. ROS Other: All systems not noted in ROS Statement are negative. Past Medical History Past Medical History: Asthma, COPD, CVA/TIA, GERD/Reflux, Hyperlipidemia, Osteoarthritis (OA), Skin Disorder Additional Past Medical History / Comment(s): Restless Leg Syndrome, sciatica, hiatal hernia, TIA 8 years ago, ulcers,see Dr Jordan H&P, varicose veins, dry skin on wrist, History of Any Multi-Drug Resistant Organisms: None Reported Past Surgical History: Appendectomy, Cholecystectomy, Heart Catheterization, Tonsillectomy Additional Past Surgical History / Comment(s): Cyst Removed from Right Hand, Past Anesthesia/Blood Transfusion Reactions: Motion Sickness Additional Past Anesthesia/Blood Transfusion Reaction / Comment(s): claustrophobia Past Psychological History: Anxiety Smoking Status: Former smoker Past Alcohol Use History: Occasional Past Drug Use History: None Reported - Past Family History Mother Family Medical History: Diabetes Mellitus Additional Family Medical History / Comment(s): at age 86 Father Family Medical History: Cancer Additional Family Medical History / Comment(s): throat cancer General Exam - General Exam Comments Initial Comments: General: The patient is barely awake, he does answer the questions, they are appropriate. He seems very tired, lethargic, GCS is 15 Skin: Skin is warm and dry and no rashes or lesions are noted. Eye: Pupils are equal, round and reactive to light, extra-ocular movements are intact; there is normal conjunctiva bilaterally. Ears, nose, mouth and throat: There are moist mucous membranes and no oral lesions. Neck: The neck is supple, there is no tenderness Cardiovascular: There is a regular rate and rhythm. No murmur, rub or gallop is appreciated. Distant S1 and S2 Respiratory: To auscultation bilateral, decrease breath sounds bilaterally patient has a poor inspiratory effort Gastrointestinal: Soft, non-distended, non-tender abdomen without masses or organomegaly noted. There is no rebound or guarding present. Bowel sounds are unremarkable. Back: There is no tenderness to palpation in the midline. There is no obvious deformity. Musculoskeletal: Normal ROM, no tenderness, There is no pedal edema. There is no calf tenderness or swelling. No cords were appreciated. Neurological: CN II-XII intact, Cranial nerves III through XII are intact. There are no obvious motor or sensory deficits. Coordination appears grossly intact. Speech is normal. Psychiatric: Cooperative, seems depressed, tired to evaluate him from psychiatry standpoint barely talk, he hardly talks Limitations: no limitations Course Vital Signs 02/24/18 23:52 Temperature 97.5 F L Pulse Rate 63 Respiratory 20 Rate Blood Pressure 116/59 O2 Sat by Pulse 94 L Oximetry , Patient's white count is 14.3, creatinine is 1.8 chest x-ray is normal KUB is normal head CT is normal he still quite confused and admitted to Dr. Aponte's service and will consult neurology EKG Findings - EKG Comments: EKG Findings:: EKG is sinus bradycardia with a ventricular rate of 51 IL interval is 152 QRS duration is 88 QT/QTC is 490/451 review of this EKG does not reveal any ST elevation or ST depression Medical Decision Making - Lab Data Result diagrams: 02/25/18 00:23 Lab Results 02/25/18 02/25/18 02/25/18 Range/Units 00:23 00:23 00:28 WBC 14.3 H (3.8-10.6) k/uL RBC 4.68 (4.30-5.90) m/uL Hgb 13.8 (13.0-17.5) gm/dL Hct 41.1 (39.0-53.0) % MCV 87.8 (80.0-100.0) fL MCH 29.5 (25.0-35.0) pg MCHC 33.6 (31.0-37.0) g/dL RDW 12.8 (11.5-15.5) % Plt Count 236 (150-450) k/uL Neutrophils % 86 % Lymphocytes % 7 % Monocytes % 5 % Eosinophils % 1 % Basophils % 0 % Neutrophils # 12.4 H (1.3-7.7) k/uL Lymphocytes # 1.0 (1.0-4.8) k/uL Monocytes # 0.7 (0-1.0) k/uL Eosinophils # 0.1 (0-0.7) k/uL Basophils # 0.0 (0-0.2) k/uL PT 11.2 (9.0-12.0) sec INR 1.2 H (<1.2) APTT 21.8 L (22.0-30.0) sec POC Glucose (mg/dL) 133 H (75-99) mg/dL POC Glu Cabinet Worker ID Cori Smith Disposition Clinical Impression: Change in mental status Disposition: ADMITTED IP TO THIS HOSP Condition: Good Referrals: Vincent Valentin MD [Primary Care Provider] - 1-2 days
[2018-02-25] MEDS ORDERED: ONDANSETRON 4 MG/2 ML VIAL ONE (01:50)
[2018-02-25] MEDS ORDERED: ACETAMINOPHEN TAB 325 MG TAB PO PRN (05:41)
[2018-02-25] MEDS ORDERED: NALOXONE 0.4 MG/ML 1 ML VIAL IV PRN (05:41)
[2018-02-25] MEDS ORDERED: ONDANSETRON 4 MG/2 ML VIAL IVP PRN (05:41)
[2018-02-25 05:44] LABS: Albumin 4.5 g/dL (3.5-5.0); Calcium 9.8 mg/dL (8.4-10.2); Creatine Kinase 74 U/L (55-170); Creatine Kinase MB 1.2 ng/mL (0.0-2.4); Total Bilirubin 0.9 mg/dL (0.2-1.3); Total Protein 7.7 g/dL (6.3-8.2); Troponin I <0.012 ng/mL (0.000-0.034)
[2018-02-25] MEDS ORDERED: MELATONIN 3 MG TABLET PO PRN (05:46)
[2018-02-25 05:59] LABS: Potassium 4.2 mmol/L (3.5-5.1)
--- NOTE | 2018-02-25 06:28 | XR ---
PROCEDURE: FILM CXR 2 VIEWS HISTORY: 67-year-old male with weakness and pain. COMPARISON: Chest radiograph 11/27/2014 TECHNIQUE: Frontal and lateral views of the chest were obtained. FINDINGS: Limited by body habitus and technique. Cardiomediastinal silhouette is stable. No evidence of focal consolidation, pleural effusion, or pneumothorax Degenerative changes in the spine. IMPRESSION: Clear lungs.
--- NOTE | 2018-02-25 06:28 | XR ---
PROCEDURE: FILM ABDOMEN HISTORY: 67-year-old male with weakness, pain, and vomiting COMPARISON: None TECHNIQUE: Frontal supine view of the abdomen was obtained. FINDINGS: Limited by body habitus and positioning. Nonspecific bowel gas pattern. 5 millimeter rounded calcification overlying the right hemipelvis may only represents a phlebolith. Ureteral calculus is in the differential. Degenerative changes of the spine. IMPRESSION: Nonspecific bowel gas pattern. 5 millimeter rounded calcification overlying the right hemipelvis may only represents a phlebolith. Ureteral calculus is in the differential.
--- NOTE | 2018-02-25 06:29 | CT ---
PROCEDURE: CT HEAD Without Contrast HISTORY: 67-year-old male with altered mental status. COMPARISON: None TECHNIQUE: CT imaging was obtained through the head. Coronal and sagittal reformations were performed. DOSE: Total Exam volume computed tomography dose index (CTDIvol) = 57.4 mGy and Dose Length Product (DLP) = 1047.1 mGY-cm. This CT exam was performed using one or more of the following dose reduction techniques: automated exposure control, adjustment of the mA and/or kV according to patient size, and/or use of iterative reconstruction technique. FINDINGS: There is no evidence of acute intracranial hemorrhage, mass effect, or midline shift. The ventricles, sulci, and cisternal spaces are within normal limits for age. The swift-white matter differentiation is preserved. Bilateral white matter hypodensities, nonspecific but likely due to chronic microvascular ischemic changes. Intracranial arterial calcifications. The bony structures are intact. Non--aggressive appearing lucent bone lesion in the anterior wall of the right frontal sinus. Visualized paranasal sinuses and mastoid air cells are clear. Visualized portions of the orbits are within normal limits. IMPRESSION: 1. No CT evidence of acute intracranial abnormality. 2. Other findings as detailed above.
[2018-02-25] MEDS: PARoxetine 20 MG TAB PO SCH ×2 (08:19→21:17)
[2018-02-25] MEDS: ASPIRIN 81 MG PO SCH (08:19)
[2018-02-25] MEDS: CARVEDILOL 6.25 MG TAB PO SCH ×2 (08:22→15:06)
[2018-02-25] MEDS ORDERED: BACLOFEN 10 MG TAB PO SCH (09:00)
[2018-02-25] MEDS ORDERED: HYDROCHLOROTHIAZIDE 25 MG TAB PO SCH (09:00)
[2018-02-25] MEDS ORDERED: GABAPENTIN 300 MG CAP PO SCH (09:00)
[2018-02-25] MEDS ORDERED: LISINOPRIL 20 MG TAB PO SCH (09:00)
[2018-02-25] MEDS ORDERED: LORATADINE 10 MG TAB PO SCH (09:00)
[2018-02-25] MEDS ORDERED: LACTULOSE 20 GM/30 ML CUP PO PRN (15:00)
[2018-02-25] MEDS ORDERED: MAGNESIUM HYDROXIDE 2,400 MG/10 ML CUP PO PRN (15:00)
[2018-02-25] MEDS ORDERED: CALCIUM CARBONATE 500 MG CHEWABLE PO PRN (15:00)
[2018-02-25] MEDS ORDERED: ALPRAZolam 0.25 MG TAB PO PRN (15:00)
[2018-02-25] MEDS: amLODIPine 10 MG TAB PO SCH (15:06)
[2018-02-25] MEDS: LACTATED RINGERS 1,000 ML IV SCH (15:09)
[2018-02-25] MEDS: BACLOFEN 10 MG TAB PO SCH ×2 (15:28→21:17)
--- NOTE | 2018-02-25 16:08 | HP ---
HISTORY AND PHYSICAL DATE OF ADMISSION: 02/25/18 DATE OF SERVICE: 02/25/18 PRESENTING COMPLAINT: Lethargic. HISTORY OF PRESENTING COMPLAINT: This is a 67-year-old patient of Dr. Valentin whose chronic stable medical conditions include COPD, GERD, hyperlipidemia, osteoarthritis, prostate disorder, restless legs syndrome, chronic low back pain with bilateral sciatica, hiatal hernia. The patient has been having lower extremity swelling for which his dose of Neurontin was cut back. The patient was brought in the hospital being lethargic and somewhat delirious as per the history obtained by the nurse. The patient is lethargic right now, does wake up. He knows he is in the hospital, but then dozes off easily. The patient denies any weakness or any headache. No fevers reported. In the ER, patient's BUN and creatinine is noted to be 42 and 1.8. There was no fever reported. The patient is difficult to get any more history as he is rather lethargic. REVIEW OF SYSTEMS: Cannot be done as patient is lethargic. 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 PAST SURGICAL HISTORY: Appendectomy, cholecystectomy, cardiac catheterization in October of 2017. Cardiac cath was normal. Cyst removed from the right hand, colonoscopy, polypectomy. PSYCH HISTORY: Anxiety and depression. SOCIAL HISTORY: Lives by himself. The patient's spouse last year. The patient smoked a pack and a half for close to 55 years. Stopped in 1986. Lives by himself. Alcohol occasionally. FAMILY HISTORY: Diabetes. HOME MEDICATIONS: 1. Flomax 0.8 mg q.h.s. 2. Potassium 20 mEq a day. 3. Hydrochlorothiazide 50 mg p.o. daily. 4. Tricor 134 mg q.h.s. 5. Melatonin 3 mg p.o. q.h.s. p.r.n. 6. Lisinopril 40 mg p.o. daily. 7. Ultram 50 mg p.o. t.i.d. 8. Oxybutynin ER 50 mg q.h.s. 9. Zyrtec 10 mg p.o. daily. 10.Aspirin 81 mg p.o. daily. 11.Norvasc 10 mg p.o. daily. 12.Zantac 300 mg q.h.s. 13.Paxil 20 mg p.o. daily. 14.Naproxen 500 mg p.o. b.i.d. 15.Flonase 1 spray each nostril daily. 16.Coreg 6.25 p.o. b.i.d. 17.Baclofen 5 mg p.o. t.i.d. 18.Ativan 0.5 mg q.6h p.r.n. 19.Desyrel 100 mg q.h.s. ALLERGIES: TO LIPITOR AND CODEINE. PHYSICAL EXAMINATION: Vital signs on presentation, temperature 97.5, pulse 63, respiratory 20, blood pressure 116/59, pulse ox 94% on room air. GENERAL APPEARANCE: Well built, BMI 43.1. Lying in bed, lethargic but arousable. EYES: Pupils are equal. Conjunctivae normal. HEENT: External appearance of nose and ears normal. Oral cavity normal. NECK: JVD unable to assess. Mass not palpable. RESPIRATORY: Slightly decreased breath sounds. CARDIOVASCULAR: 1st and second sounds normal. No edema. ABDOMEN: Distended, soft. Liver and spleen not palpable. LYMPHATICS: No lymph nodes palpable in the neck and axilla. PSYCHIATRY: Cannot really assess, but patient knows that he is in the hospital. NEUROLOGICAL: Pupils equal. No facial asymmetry. Moving all 4 limbs. INVESTIGATIONS: White count 14.3, hemoglobin 13.8, potassium 4.2, BUN 42, creatinine 1.80. The patient's blood work from October of this year shows a BUN of 22, creatinine 0.97. CT scan of the brain nil acute. ASSESSMENT: 1. This is a patient who presents with being very lethargic. It may be noted that the patient has acute renal failure and patient is on Neurontin and this will definitely make the patient lethargic. At the same time, patient has also been on Ultram and Zyrtec and Ativan p.r.n. and Desyrel and this does all add up to the patient being rather drowsy. 2. Acute renal failure, exact cause unknown, but the patient is on MARSHALL inhibitor, hydrochlorothiazide will be discontinued for now. 3. Morbid obesity BMI 43.1. 4. Chronic obstructive pulmonary disease. 5. Gastroesophageal reflux disease. 6. Hyperlipidemia. 7. Primary osteoarthritis. 8. Prostate disorder. 9. Restless leg syndrome. 10.Hiatal hernia hiatal hernia. PLAN: At this point, patient will be kept on IV fluids to improve his renal function. We will cut back the dose of Neurontin 200 mg 3 times a day in the setting of renal failure. The patient's hydrochlorothiazide will be discontinued and so will be patient's MARSHALL inhibitor and naproxen, will all be discontinued. The patient will be given IV fluids. Will do neuro checks with aspiration precautions. Expect the patient to turn around. Keep on the neuro checks. Copy to Dr. Valentin. DURAN / CHEMA: [id number] /
--- NOTE | 2018-02-25 16:53 | EEG ---
ELECTROENCEPHALOGRAM REPORT DATE OF EE02/25/2018. REFERRING PHYSICIAN: Dr. Valadez. CONSULTING/INTERPRETING PHYSICIAN: Dr. Param Leon MD ELECTROENCEPHALOGRAPHIC EXAMINATION REPORT: INDICATION FOR EXAMINATION: This patient is a 67-year-old male being evaluated for altered mental status and confusion. Patient also with increased anxiety disorder. AGE: [age]. EEG FINDINGS: A routine 21 channel awake digital EEG recording was accomplished utilizing the 10-20 international system with bipolar and referential montages. The background activity in the most alert resting state consists of a low to medium amplitude, fairly well- developed and well sustained 7 Hz activity over the posterior head regions. This posterior rhythm attenuates to eye opening. There is a small amount of low amplitude 18-20 Hz beta activity seen maximally over the anterior head regions. Muscle and movement artifact was observed on a few occasions during the tracing. Hyperventilation was not performed. Photic stimulation at flash frequencies of 2-30 Hz produced a minimal occipital driving response. No epileptiform discharges were seen. IMPRESSION: This EEG is within normal limits for the patient's age. The EEG failed to reveal any focal, lateralized, or epileptiform abnormalities. Clinical correlation is recommended. MMODL / IJN: [id number] /
--- NOTE | 2018-02-25 17:21 | P.CNNES ---
History of Present Illness Consult date: 02/25/18 Reason for Consult: This patient admitted with altered mental status. History of Present Illness: This patient is a 67-year-old right-handed white male who apparently over the last week has been showing increasing symptoms of confusion and disorientation at home. Apparently he lives in his own home in the has several of his children check on him on a regular basis. Recently the daughters have found him to be very confused and disoriented. He was screaming for help the other day and apparently was unclear why he was in need of immediate help. It was felt he may have had a side effect to one of his medications producing some of the confusion and it was discontinued. Apparently he has been using Neurontin which caused some side effects with bilateral leg swelling. This was discontinued but he continues to have evidence of increase anxiety and confusion. His symptoms have been progressing over the last few weeks. Family finally convinced him to come to the emergency room for further evaluation. He was seen in the emergency room at [facility] yesterday by physician Dr. Leavitt. A computed tomography scan of the brain was ordered which revealed no acute intracranial abnormality. Patient continued to have confusion and for this reason he was admitted to hospital for further evaluation. Patient appears at bedside to be very withdrawn and depressed. Apparently he lost his in July and has still symptoms of grief and episodes of depression. He has not been walking apparently for the last few days which is also unusual for him as he normally walks and gets about on his own. Apparently he was brought in in a wheelchair but had been walking previously. He does complain of some low back pain symptoms recently and he will be re-examined for this as well. The patient is very withdrawn and makes very poor eye contact. He does appear to be depressed at this time. We have recommended a psychiatry consultation for the patient. He does have a slightly elevated white count which is being closely monitored. The patient is not a very good historian. He states he does get angry and upset easily and cannot explain why he becomes withdrawn. As noted computed tomography scan of the brain failed to reveal any acute changes. We have recommended further testing with MRI of the brain and MRI of the lumbar spine for further evaluation. He did undergo routine EEG today which is reviewed and was within normal limits for his age. The patient at this time appears to be withdrawn and mildly confused. This may be a form of pseudodementia. We will await further evaluation by psychiatry. The patient states he is not sure why his legs are weak and has not been up or walking since admission to the hospital. We have recommended physical therapy to see the patient as well as Dr. Gay for possible inpatient rehab. His overall prognosis at this time remains guarded. Neurology is now been consulted for further evaluation and recommendations. Review of Systems Constitutional: Denies chills, Denies fever Eyes: denies blurred vision, denies pain Ears, nose, mouth and throat: Denies headache, Denies sore throat Cardiovascular: Denies chest pain, Denies shortness of breath Respiratory: Denies cough Gastrointestinal: Denies abdominal pain, Denies diarrhea, Denies nausea, Denies vomiting Musculoskeletal: Denies myalgias Integumentary: Denies pruritus, Denies rash Neurological: Reports change in mentation, Reports confusion, Reports gait dysfunction (This letter), Reports memory loss, Reports tingling, Denies numbness, Denies weakness Psychiatric: Reports disorientation, Reports hopelessness, Reports mood swings, Denies anxiety, Denies depression Endocrine: Denies fatigue, Denies weight change Past Medical History Past Medical History: Asthma, COPD, CVA/TIA, GERD/Reflux, Hyperlipidemia, Osteoarthritis (OA), Prostate Disorder, Skin Disorder Additional Past Medical History / Comment(s): Recent bilateral leg swelling which pt states is d/t neurontin, restless Leg Syndrome, low back pain and bilateral sciatica, hiatal hernia, stomach ulcer, TIA 8 years ago, vertigo, past concussion from football injury. History of Any Multi-Drug Resistant Organisms: None Reported Past Surgical History: Appendectomy, Cholecystectomy, Heart Catheterization, Tonsillectomy Additional Past Surgical History / Comment(s): Cardiac cath 10/29/17 normal, cyst removed from right hand, colonoscopy/polypectomy Past Anesthesia/Blood Transfusion Reactions: Motion Sickness Additional Past Anesthesia/Blood Transfusion Reaction / Comment(s): claustrophobia Smoking Status: Former smoker - Past Family History Mother Family Medical History: Diabetes Mellitus Additional Family Medical History / Comment(s): Mother at the age of 86yrs. Father Family Medical History: Cancer Additional Family Medical History / Comment(s): Throat cancer and at the age of 50yrs. Medications and Allergies Home Medications Medication Instructions Recorded Confirmed Type PARoxetine [Paxil] 20 mg PO QAM 11/27/14 02/25/18 History amLODIPine [Norvasc] 10 mg PO DAILY 11/27/14 02/25/18 History Fenofibrate,Micronized 134 mg PO HS 11/28/14 02/25/18 History [Fenofibrate] Cetirizine HCl [Zyrtec] 10 mg PO DAILY 08/13/17 02/25/18 History Oxybutynin Chloride [Oxybutynin 15 mg PO HS 08/13/17 02/25/18 History Chloride ER] Ranitidine HCl [Zantac] 300 mg PO HS 08/13/17 02/25/18 History Tamsulosin HCl [Flomax] 0.8 mg PO HS 08/13/17 02/25/18 History Carvedilol [Coreg] 6.25 mg PO BID #60 tablet 08/14/17 02/25/18 Rx Aspirin [Adult Low Dose Aspirin EC] 81 mg PO QAM 10/22/17 02/25/18 History Melatonin 3 mg PO HS PRN 10/22/17 02/25/18 History Naproxen 500 mg PO BID 10/22/17 02/25/18 History traMADol HCl [Ultram] 50 mg PO TID 10/22/17 02/25/18 History Baclofen 5 mg PO TID 10/26/17 02/25/18 History Fluticasone Nasal [place] [Flonase 1 spray EA NOSTRIL DAILY 02/25/18 02/25/18 History Nasal [place]] Hydrochlorothiazide [Hydrodiuril] 50 mg PO DAILY 02/25/18 02/25/18 History LORazepam [Ativan] 0.5 mg PO Q6H PRN 02/25/18 02/25/18 History Lisinopril 40 mg PO DAILY 02/25/18 02/25/18 History Potassium Chloride [Klor-Con 20] 20 meq PO DAILY 02/25/18 02/25/18 History traZODone HCL [Desyrel] 100 mg PO HS 02/25/18 02/25/18 History Allergies Allergy/AdvReac Type Severity Reaction Status Date / Time atorvastatin [From Lipitor] Allergy Unknown Verified 02/25/18 08:05 codeine Allergy Unknown Verified 02/25/18 08:05 Physical Examination - Vital Signs Vital Signs: Vital Signs Temp Pulse Pulse Resp BP BP Pulse Ox 02/25/18 14:42 97.5 F L 62 14 148/68 98 02/25/18 08:23 65 02/25/18 08:00 65 16 02/25/18 06:01 98.0 F 58 L 16 125/67 97 02/24/18 23:52 97.5 F L 63 20 116/59 94 L Intake and Output 02/25/18 02/25/18 02/25/18 06:59 14:59 22:59 Intake Total 1080 Balance 1080 Intake: Intake, IV Titration 600 Amount Sodium Chloride 0.9% 1, 600 000 ml @ 75 mls/hr IV . [id number] ONE Rx#:[id number] Oral 480 Other: Voiding Method Diaper # Voids 1 Weight 117.48 kg - Constitutional General appearance: average body habitus, cooperative - EENT EENT: PERRL, mucous membranes moist - Respiratory Respiratory: lungs clear, normal breath sounds - Cardiovascular Cardiovascular: regular rate, normal S1, normal S2 Extremities: no peripheral edema bilaterally - Gastrointestinal Gastrointestinal: normoactive bowel sounds - Neurologic Cranial nerve examination: PERRL, EOMI, VFF, V1/V2/V3 grossly intact, face symmetric, intact gag reflex, intact corneal reflex, normal palatal elevation Speech examination: intact Sensorimotor examination: intact Motor examination - right side: 3/5: hip flexors, knee extensors, dorsiflexion, toe extension (EHL), plantarflexion, 4/5: biceps, triceps, wrist flexion, wrist extension, development chemist Motor examination - left side: 3/5: hip flexors, knee extensors, dorsiflexion, toe extension (EHL), plantarflexion, 4/5: biceps, triceps, wrist flexion, wrist extension, development chemist Detailed sensory examination: intact Reflex and gait examination: intact Reflexes: 1+: ankle, bicep, knee, tricep - Musculoskeletal Musculoskeletal: no pain - Psychiatric Psychiatric: mood/affect appropriate, cooperative Results - Laboratory Findings CBC and BMP: 02/25/18 00:23 02/25/18 00:23 Abnormal Lab Findings: Abnormal Labs 02/25/18 02/25/18 02/25/18 00:23 00:23 00:23 WBC 14.3 H Neutrophils # 12.4 H INR 1.2 H APTT 21.8 L Chloride 95 L BUN 42 H Creatinine 1.80 H Glucose 133 H POC Glucose (mg/dL) Alkaline Phosphatase 31 L 02/25/18 00:28 WBC Neutrophils # INR APTT Chloride BUN Creatinine Glucose POC Glucose (mg/dL) 133 H Alkaline Phosphatase Assessment and Plan (1) Acute encephalopathy Current Visit: Yes Status: Acute Code(s): G93.40 - ENCEPHALOPATHY, UNSPECIFIED SNOMED Code(s): 04597026 (2) Depression Current Visit: Yes Status: Acute Code(s): F32.9 - MAJOR DEPRESSIVE DISORDER , SINGLE EPISODE, UNSPECIFIED SNOMED Code(s): 55702272 (3) Bilateral leg weakness Current Visit: Yes Status: Acute Code(s): R29.898 - OTH SYMPTOMS AND SIGNS INVOLVING THE MUSCULOSKELETAL SYSTEM SNOMED Code(s): 0748726 (4) Hyperlipidemia Current Visit: No Status: Acute Code(s): E78.5 - HYPERLIPIDEMIA, UNSPECIFIED SNOMED Code(s): 72784269 Plan: This patient is a 67-year-old male admitted with acute change in mentation in mental status at home over the last week. He has become more confused and disoriented as per family's report. Patient was brought into the emergency room yesterday and underwent a computed tomography scan of the brain results of which are noted above. We are recommending the patient undergo an MRI of the brain and lumbar spine for further evaluation. He is also presenting with leg weakness of unknown etiology. He did undergo routine EEG which was reviewed today and is normal for his age. He does appear to be depressed on questioning today and we are recommending a psychiatry consultation for further evaluation of acute depression. He has been depressed after losing his in July of last year. We have recommended a physical therapy consultation as well as evaluation by Dr. Gay for possible subacute rehab. His overall prognosis at this time remains guarded. We will await the results of his neuroimaging studies and we will give further recommendations. We will follow this patient closely with you. Time with Patient: Greater than 30
[2018-02-25] MEDS ORDERED: FENOFIBRATE 160 MG TAB PO SCH ×2 (21:00→21:20)
[2018-02-25] MEDS: OXYBUTYNIN 15 MG TAB.ER.24 PO SCH (21:16)
[2018-02-25] MEDS: FAMOTIDINE 20 MG TAB PO SCH (21:16)
[2018-02-25] MEDS: TAMSULOSIN 0.4 MG CAP.ER.24H PO SCH (21:17)
[2018-02-26] MEDS: LACTATED RINGERS 1,000 ML IV SCH ×3 (00:44→15:15)
--- NOTE | 2018-02-26 06:23 | P.CONS ---
History of Present Illness - Chief Complaint Mental status change and lower extremity weakness - History of Present Illness I had the opportunity to see patient for inpatient rehab consultation with regard to gait disturbance. He was admitted to [facility] February 25 with mental status change, confusion, disorientation, visual change and lower extremity weakness. Seen by Dr. Ramses Beth. Head CT and chest x-rays negative. KUB with nonspecific gas pattern only. PT prescribed and I added OT and speech. Previous functional history as elicited from patient: 67-year-old right-handed white male who is , lives in one floor home alone. Retired. Describes independent with own cooking, laundry, driving, standing shower and gait without device. Denies tobacco. Occasional drink. PMD is Dr. Valentin. Family history of father with throat cancer. Review of Systems Review of systems: ENT: Denies sneezes or discharge. Eyes: Describes poor vision more so right eye than left eye. Cardiac: Denies chest pain or palpitation. Pulmonary: Denies cough or shortness of breath. Gastrointestinal: Denies nausea, emesis, constipation, diarrhea. Genitourinary: Denies discharge or frequency. Musculoskeletal: Denies muscle or bone aches. Neurologic: Generalized weakness but especially lowers. Endocrine: Denies shakes or sweats. Oncology: Denies cancers. Dermatologic: Denies rash, itching, pruritus. ALLERGY/immunology: Denies sneezes, rashes. Past Medical History Past Medical History: Asthma, COPD, CVA/TIA, GERD/Reflux, Hyperlipidemia, Osteoarthritis (OA), Prostate Disorder, Skin Disorder Additional Past Medical History / Comment(s): Recent bilateral leg swelling which pt states is d/t neurontin, restless Leg Syndrome, low back pain and bilateral sciatica, hiatal hernia, stomach ulcer, TIA 8 years ago, vertigo, past concussion from football injury. History of Any Multi-Drug Resistant Organisms: None Reported Past Surgical History: Appendectomy, Cholecystectomy, Heart Catheterization, Tonsillectomy Additional Past Surgical History / Comment(s): Cardiac cath 10/29/17 normal, cyst removed from right hand, colonoscopy/polypectomy Past Anesthesia/Blood Transfusion Reactions: Motion Sickness Additional Past Anesthesia/Blood Transfusion Reaction / Comm: claustrophobia Smoking Status: Former smoker - Past Family History Mother Family Medical History: Diabetes Mellitus Additional Family Medical History / Comment(s): Mother at the age of 86yrs. Father Family Medical History: Cancer Additional Family Medical History / Comment(s): Throat cancer and at the age of 50yrs. Medications and Allergies Home Medications Medication Instructions Recorded Confirmed Type PARoxetine [Paxil] 20 mg PO QAM 11/27/14 02/25/18 History amLODIPine [Norvasc] 10 mg PO DAILY 11/27/14 02/25/18 History Fenofibrate,Micronized 134 mg PO HS 11/28/14 02/25/18 History [Fenofibrate] Cetirizine HCl [Zyrtec] 10 mg PO DAILY 08/13/17 02/25/18 History Oxybutynin Chloride [Oxybutynin 15 mg PO HS 08/13/17 02/25/18 History Chloride ER] Ranitidine HCl [Zantac] 300 mg PO HS 08/13/17 02/25/18 History Tamsulosin HCl [Flomax] 0.8 mg PO HS 08/13/17 02/25/18 History Carvedilol [Coreg] 6.25 mg PO BID #60 tablet 08/14/17 02/25/18 Rx Aspirin [Adult Low Dose Aspirin EC] 81 mg PO QAM 10/22/17 02/25/18 History Melatonin 3 mg PO HS PRN 10/22/17 02/25/18 History Naproxen 500 mg PO BID 10/22/17 02/25/18 History traMADol HCl [Ultram] 50 mg PO TID 10/22/17 02/25/18 History Baclofen 5 mg PO TID 10/26/17 02/25/18 History Fluticasone Nasal [place] [Flonase 1 spray EA NOSTRIL DAILY 02/25/18 02/25/18 History Nasal [place]] Hydrochlorothiazide [Hydrodiuril] 50 mg PO DAILY 02/25/18 02/25/18 History LORazepam [Ativan] 0.5 mg PO Q6H PRN 02/25/18 02/25/18 History Lisinopril 40 mg PO DAILY 02/25/18 02/25/18 History Potassium Chloride [Klor-Con 20] 20 meq PO DAILY 02/25/18 02/25/18 History traZODone HCL [Desyrel] 100 mg PO HS 02/25/18 02/25/18 History Allergies Allergy/AdvReac Type Severity Reaction Status Date / Time atorvastatin [From Lipitor] Allergy Unknown Verified 02/25/18 08:05 codeine Allergy Unknown Verified 02/25/18 08:05 Physical Exam Vitals: Vital Signs Temp Pulse Pulse Resp BP Pulse Ox 02/26/18 05:52 98.2 F 70 18 125/72 98 02/25/18 22:45 18 02/25/18 21:41 93 L 02/25/18 21:11 98.2 F 69 18 124/70 98 02/25/18 16:00 62 14 02/25/18 15:00 98 02/25/18 14:42 97.5 F L 62 14 148/68 98 02/25/18 08:23 65 02/25/18 08:00 65 16 Intake and Output 02/25/18 02/25/18 02/26/18 14:59 22:59 06:59 Intake Total 1080 Balance 1080 Intake: Intake, IV Titration 600 Amount Sodium Chloride 0.9% 1, 600 000 ml @ 75 mls/hr IV . [id number] ONE Rx#:[id number] Oral 480 Other: Voiding Method Diaper Diaper # Voids 1 3 3 Skin: Good color, texture, turgor. General: Overweight build and comfortable appearance. Head: Normocephalic, atraumatic. Eyes: Symmetric. Pupils equal round. Ears: Symmetric. Hearing within normal limits. Mouth: Clear. Neck: Supple. Carotid without bruit. Cardiac: Regular rate and rhythm. Lungs: Clear anteriorly and posteriorly. Abdomen: Soft active nontender. Extremities: Normal tone. Neurological: Mental status: Alert, cooperative, depressed. Cranial nerves: Symmetric facial tone and trapezius. Motor: Poor movement all 4 limbs. Sensation: Intact throughout. DTRs: Absent throughout. Mobility: Would require definite assistance, most likely total for bed mobility. Results CBC & Chem 7: 02/25/18 00:23 02/25/18 00:23 Chest x-ray: report reviewed (Negative.) Abdominal x-ray: report reviewed (KUB with nonspecific gas pattern.) CT Scan - head: report reviewed (Negative.) Assessment and Plan (1) Acute encephalopathy Current Visit: Yes Status: Acute Code(s): G93.40 - ENCEPHALOPATHY, UNSPECIFIED SNOMED Code(s): 93786268 Plan: Depression: 1. Gait disturbance. 2. Mental status change with acute encephalopathy. 3. Lower extremity weakness. 4. COPD with asthma. 5. Dyslipidemia. 6. Jennifer arthritis. 7. GERD. Comments and plan: PT prescribed and I added OT and speech. Follow therapies with yourself. Rehab prognosis currently guarded due to patient's poor attitude.
[2018-02-26 08:34] LABS: Appearance,Urine Turbid (Clear); Bacteria,Urine Moderate /hpf; Bilirubin,Urine Negative (Negative); Blood,Urine Small (Negative); Color,Urine Yellow; Glucose,Urine (UA) Negative (Negative); Ketones,Urine Negative (Negative); Leukocyte Esterase,Urine Large (Negative); Nitrite,Urine Negative (Negative); PH, Urine 7.5 (5.0-8.0); Protein,Urine Trace (Negative); RBC,Urine 21 /hpf (0-5); Specific Gravity,Urine 1.013 (1.001-1.035); WBC,Urine >182 /hpf (0-5)
[2018-02-26 09:00] LABS: Amphetamine Screen,Urine Not Detected (NotDetected); Barbiturate Screen,Urine Not Detected (NotDetected); Benzodiazepines Screen,Urine Not Detected (NotDetected); Cocaine Screen,Urine Not Detected (NotDetected); Methadone Screen, Urine Not Detected (NotDetected); Opiate Screen,Urine Not Detected (NotDetected); Oxycodone Screen, Urine Not Detected (NotDetected); Phencyclidine Screen,Urine Not Detected (NotDetected); Tricyclic Antidepressant,Urine Not Detected (NotDetected); Urn Cannabinoid Scrn Not Detected (NotDetected)
[2018-02-26] MEDS: CARVEDILOL 6.25 MG TAB PO SCH ×2 (09:21→17:01)
[2018-02-26] MEDS: PARoxetine 20 MG TAB PO SCH ×2 (09:21→20:44)
[2018-02-26] MEDS: GABAPENTIN 100 MG CAP PO SCH ×5 (09:22→20:43)
[2018-02-26] MEDS: ASPIRIN 81 MG PO SCH (09:23)
[2018-02-26] MEDS: BACLOFEN 10 MG TAB PO SCH ×3 (09:23→20:43)
[2018-02-26] MEDS ORDERED: LORazepam 2 MG/ML INJ IM ONE (11:00)
[2018-02-26 11:51] LABS: Calcium 9.5 mg/dL (8.4-10.2); Potassium 3.9 mmol/L (3.5-5.1)
[2018-02-26 12:23] LABS: PSA Annual Screen 0.81 ng/mL (0.00-4.00)
[2018-02-26] MEDS: amLODIPine 10 MG TAB PO SCH (13:02)
--- NOTE | 2018-02-26 14:41 | P.CN ---
Psychiatric Consult - . Consult date: 02/26/18 Consult:: 02/26/18 14:27 I tried to see this patient twice this afternoon for psych consult regarding "acute depression". Apparently patient is still at MRI and is not available. I have reviewed the chart and talk to the nurse. The neurology and medical consult notes indicate patient has encephalopathy. Computed tomography scan of the brain shows bilateral white matter hypodensities, nonspecific but likely due to chronic microvascular ischemic changes, EEG has been within normal limits. Patient's nurse told me that patient's had about 6 months ago and has been depressed. He was on Paxil 20 mg twice a day, tramadol 50 mg 3 times a day baclofen 10 mg 3 times a day and Neurontin 300 mg 3 times a day. But now he is on baclofen 5 mg 3 times a day Neurontin 100 mg 3 times a day and Paxil 20 mg twice a day. Generally speaking "depression" does not start acutely. But, sadness, disappointment and grief do. Encephalopathy, especially when combined with VAMP MARKER suppressants like narcotics (tramadol), baclofen and Neurontin can cause clinical presentation which can be hard to distinguish from depression. Suggestion: Continuing tramadol baclofen and Neurontin can make encephalopathy worse. Once the patient recovers from encephalopathy, if you think he is still depressed, I will come and reevaluate him.
--- NOTE | 2018-02-26 15:31 | MR ---
EXAMINATION TYPE: MR brain/lspine wo con DATE OF EXAM: 02/26/2018 COMPARISON: NONE HISTORY: Patient with altered mental status and lethargy, bilateral leg weakness BRAIN: TECHNIQUE: Multiplanar, multisequence images of the brain and brainstem is performed without IV contrast. FINDINGS: Diffusion weighted images demonstrate no evidence of a recent infarct or other diffusion ab normality. There is no extra-axial fluid collection. The ventricular system and cisternal spaces are symmetrically prominent compatible with age-related volume loss. Confluent periventricular white mat ter limits evaluation for subtle ependymal edema. Numerous foci of T2/FLAIR hyperintensity are scatte red throughout the subcortical and periventricular white matter. This is pronounced for the patient's age and moderate to severe burden. Midline structures demonstrate normal morphology. The craniocervical junction appears within normal limits. The dural venous sinuses appear patent. Mucosal thickening is seen within the sphenoid and et hmoid sinuses. The remaining visualized sinuses are clear and the globes are intact. LUMBAR SPINE: TECHNIQUE: Multiplanar, multisequence images of the lumbar spine were acquired without intravenous contrast. FINDINGS: The lumbar spine vertebral bodies maintain normal vertebral body height and alignment. Conu s medullaris is unremarkable terminating at L1. Bone marrow signal is within normal limits other than degenerative endplate changes and L1 vertebral body T2/T1 hyperintense hemangioma. Extensive multile juan j disc desiccation is seen. L1-L2: There is a broad-based disc bulge without evidence of spinal canal stenosis or neural foramina l narrowing. L2-L3: There is a broad-based disc bulge, facet arthropathy and disc desiccation resulting in moderat e right and mild left neural foraminal narrowing. There is mild spinal canal stenosis at this level. L3-L4: There is a broad-based disc bulge and facet arthropathy resulting in mild right and moderate l eft neural foraminal narrowing. There is mild spinal canal stenosis at this level. L4-L5: There is a broad-based disc bulge and facet arthropathy resulting in mild bilateral neural for aminal narrowing. No significant spinal canal stenosis is seen. L5-S1: There is a central disc herniation superimposed upon a broad-based disc bulge creating severe right neural foraminal narrowing, severe left neural foraminal narrowing, and mild spinal canal steno sis. Facet arthropathy is also seen. IMPRESSION: 1. Ventricular prominence likely relates to age-related volume loss although normal pressure hydrocep halus should be considered in this patient with altered mental status. Additionally confluent periven tricular white matter limits evaluation for transependymal edema. 2. Moderate to severe burden nonspecific white matter change in this patient's age group. Although fi ndings most likely relate to chronic microangiopathy other etiologies such as demyelinating disease, vasculitides and less likely postinfectious etiology should also be considered. 3. Central disc herniation at L5-S1 in combination with extensive degenerative disc disease create se abdoul bilateral neural foraminal narrowing and mild spinal canal stenosis. 4. Multilevel degenerative disc disease crating mild spinal canal stenosis at L2-L4 and variable degr ees of neural foraminal stenosis as described above.
[2018-02-26 15:54] VITALS: RESP 16
--- NOTE | 2018-02-26 18:11 | P.PN ---
Subjective Progress Note Date: 02/26/18 This patient is a 67-year-old right-handed white male who is being evaluated for symptoms of confusion and altered mental status. Patient presented yesterday with mentation changes. CAT scan of the brain revealed white matter ischemic changes. Patient underwent MRI of the lumbar spine which does reveal significant degenerative changes. There is a disc herniation noted as well. Disc herniation most notable at L5-S1 with extensive degenerative disc disease creating bilateral neural foraminal narrowing and spinal canal stenosis. Given these MRI findings we have recommended a consultation with orthopedic spine surgery as outpatient. Patient was also seen by psychiatry for evaluation of depression. At this time their impression is that he has more of a in encephalopathy and does not require psychiatric intervention. Cause of his encephalopathy possibly medication effect. He has been depressed however due to the loss of his and July of last year. We will continue to work with him and will await further recommendations from PT OT. He was seen by Dr. Gay today and apparently is not a very good candidate for inpatient rehab as he is not cooperative. He is also noted to have a poor attitude by Dr. Gay. Patient underwent MRI of the brain today as well which did reveal ventricular prominence and confluent white matter changes. These findings could also be a form of chronic microvascular disease. This is suggesting possibility of vascular dementia for this patient as well. Patient is noted today to be up and ambulating in the hallway with the use of a walker. He is showing significant improvement in his mental status. He states he does have chronic back pain but is not been bothered recently with any severe radicular pain. As noted his MRI of the lumbar spine was reviewed with him today in detail. We recommend a follow-up with orthopedic surgery in the outpatient setting. The patient's mental status is much improved today. He is much more talkative and able to answer all questions appropriately. He is being considered for possible discharge home tomorrow if he continues to show progress. We will continue close follow-up for the patient. His overall prognosis at this time remains guarded. Objective - Vital Signs Vital signs: Vital Signs Temp 97.9 F 02/26/18 15:53 Pulse 66 02/26/18 16:00 Resp 16 02/26/18 16:00 BP 109/57 02/26/18 15:53 Pulse Ox 95 02/26/18 15:53 Intake & Output 02/25/18 02/26/18 02/26/18 18:59 06:59 18:59 Intake Total 1080 600 Output Total 1999 Balance 1080 -1400 Intake: Intake, IV Titration 600 Amount Sodium Chloride 0.9% 1, 600 000 ml @ 75 mls/hr IV . [id number] ONE Rx#:[id number] Oral 480 600 Output: Urine 2000 Other: Voiding Method Diaper Diaper Urinal Diaper # Voids 1 3 5 # Bowel Movements 2 - Exam Physical examination: PHYSICAL EXAMINATION: Patient is resting comfortably in bed. VITAL SIGNS: Blood pressure is [109/57]. Heart rate is [65]. Respiration is [16] . Temperature is [97.9]. HEENT: Head is atraumatic, neck is supple, there were no carotid bruits. CHEST: Lungs are clear to auscultation and percussion. CARDIAC: S1, S2 normal rate and rhythm. There is no murmur. ABDOMEN: Soft and nontender. Bowel sounds are present. EXTREMITIES: There is no pedal edema. Peripheral pulses are present. Neurological examination: Patient is much more awake and alert today. He is oriented 3. Speech is fluent with no evidence of any aphasia or dysarthria. His memory and intellectual functions are appropriate for his age. Cranial nerves II through XII are grossly intact. Motor examination fails to reveal any focal weakness. Deep tendon reflexes are 1+ and symmetric. Plantar responses flexor bilaterally. - Labs CBC & Chem 7: 02/25/18 00:23 02/26/18 09:51 Labs: Abnormal Lab Results - Last 24 Hours (Table) 02/26/18 02/26/18 Range/Units 08:20 09:51 Chloride 96 L (98-107) mmol/L BUN 25 H (9-20) mg/dL Glucose 106 H (74-99) mg/dL Urine Protein Trace H (Negative) Urine Blood Small H (Negative) Ur Leukocyte Esterase Large H (Negative) Urine RBC 21 H (0-5) /hpf Urine WBC >182 H (0-5) /hpf Urine WBC Clumps Many H (None) /hpf Urine Bacteria Moderate H (None) /hpf Assessment and Plan (1) Acute encephalopathy Current Visit: Yes Status: Acute Code(s): G93.40 - ENCEPHALOPATHY, UNSPECIFIED SNOMED Code(s): 57603435 (2) Depression Current Visit: Yes Status: Acute Code(s): F32.9 - MAJOR DEPRESSIVE DISORDER , SINGLE EPISODE, UNSPECIFIED SNOMED Code(s): 24893397 (3) Bilateral leg weakness Current Visit: Yes Status: Acute Code(s): R29.898 - OTH SYMPTOMS AND SIGNS INVOLVING THE MUSCULOSKELETAL SYSTEM SNOMED Code(s): 7828667 (4) Hyperlipidemia Current Visit: No Status: Acute Code(s): E78.5 - HYPERLIPIDEMIA, UNSPECIFIED SNOMED Code(s): 99852480 Plan: This patient is a 67-year-old male who was admitted initially for evaluation of altered mental status and weakness. He underwent MRI of the brain and lumbar spine results of which are noted above. Today he is showing significant improvement in mental status and is up and ambulating in the hallway with the use of his walker. MRI does reveal some degenerative changes in the lumbar spine which can be followed up in the outpatient orthopedic spine surgery clinic. MRI of the brain revealed nonspecific white matter changes consistent with vascular ischemia. He may follow-up outpatient as needed. Patient is been up and ambulating today and according to nursing staff is shown significant improvement in his overall mental status. He does not appear to be depressed and is been cooperating very well with the nursing staff today. Patient is being considered for possible discharge home tomorrow. So overall prognosis at this time remains guarded.
[2018-02-26] MEDS: FAMOTIDINE 20 MG TAB PO SCH (20:42)
[2018-02-26] MEDS: TAMSULOSIN 0.4 MG CAP.ER.24H PO SCH (20:43)
[2018-02-26] MEDS: OXYBUTYNIN 15 MG TAB.ER.24 PO SCH (20:44)
[2018-02-26] MEDS ORDERED: BACLOFEN 10 MG TAB PO PRN (21:17)
--- NOTE | 2018-02-26 21:49 | PN ---
PROGRESS NOTE DATE OF SERVICE: 02/26/2018 PRESENTING COMPLAINT: Lethargic. INTERVAL HISTORY: This patient was admitted with acute metabolic encephalopathy felt to be a combination of side effects of medications in the setting of acute renal failure. This patient has done remarkably well after hydration. Renal function has improved. The patient walked in the hallway with a walker, did tolerate a diet. Overall doing much better. Other neurological workup has been negative. REVIEW OF SYSTEMS: Done for constitutional, cardiovascular, GI, pulmonary; relevant findings as above. CURRENT MEDICATIONS: Reviewed. They include IV fluids. PHYSICAL EXAMINATION: Temperature 97.9, pulse 66, respiration 16, blood pressure 109/57, pulse ox 95% on room air. GENERAL APPEARANCE: Sitting up, awake, answering questions. EYES: Pupils equal. Conjunctivae normal. HEENT: External appearance of nose and ears normal. Oral cavity normal. NECK: JVD unable to assess. Mass not palpable. RESPIRATORY: Effort normal. LUNGS: Slightly decreased breath sounds. CARDIOVASCULAR: First and second sounds normal. No edema. ABDOMEN: Soft, nontender. Liver and spleen not palpable. PSYCHIATRY: Alert and oriented x3. Mood and affect normal. INVESTIGATIONS: Potassium 3.9, BUN 25, creatinine 1.10. ASSESSMENT: 1. Acute metabolic encephalopathy from side effects of medications in the setting of acute renal failure, significantly improved. 2. Acute renal failure from medications, including MARSHALL inhibitor, hydrochlorothiazide, which has corrected. 3. Morbid obesity with body mass index of 43.1. 4. Chronic obstructive pulmonary disease. 5. Gastroesophageal reflux disease. 6. Hyperlipidemia. 7. Primary osteoarthritis. 8. Benign prostatic hypertrophy. 9. Restless legs syndrome. 10.Hiatal hernia. PLAN: Patient is overall doing much better. Will change the patient's baclofen to 5 mg p.r.n. and patient's renal-offensive drugs will be kept off. Encouraged the patient to ambulate. Care was discussed with the patient. Will discontinue the IV fluids later today. Neurological workup is showing some chronic changes. Care was discussed with the patient. MMODL / IJN: [id number] /
[2018-02-27 06:23] VITALS: PULSE 65; TEMP 97.6
[2018-02-27 07:35] LABS: Calcium 9.5 mg/dL (8.4-10.2); Potassium 3.6 mmol/L (3.5-5.1)
[2018-02-27] MEDS: PARoxetine 20 MG TAB PO SCH (08:04)
[2018-02-27] MEDS: ASPIRIN 81 MG PO SCH (08:04)
[2018-02-27] MEDS: CARVEDILOL 6.25 MG TAB PO SCH (08:04)
[2018-02-27] MEDS: amLODIPine 10 MG TAB PO SCH (15:51)
[2018-02-27 15:55] VITALS: BP 138/66
[2018-02-27] MEDS ORDERED: GABAPENTIN 100 MG CAP PO SCH (21:00)
--- NOTE | 2018-02-28 17:34 | DS ---
DISCHARGE SUMMARY DATE OF ADMISSION: 02/25/18 DATE OF DISCHARGE: 02/28/18. FINAL DIAGNOSES: 1. Acute metabolic encephalopathy from side effect of medication in setting of acute renal failure. 2. Acute renal failure from medications including MARSHALL inhibitor, hydrochlorothiazide, resolved. 3. Morbid obesity, BMI 43.1. 4. Chronic obstructive pulmonary disease. 5. Gastroesophageal reflux disease. 6. Hyperlipidemia. 7. Primary osteoarthritis. 8. Benign prostatic hypertrophy. 9. Restless legs syndrome. 10.Hiatal hernia. HOSPITAL COURSE: This patient presents rather encephalopathic, lethargic, felt to be a combination of medications. The patient on presentation had a BUN of 42, creatinine 1.80. By the time of discharge, BUN and creatinine did come down to 23 and 1.13. The patient's cetirizine, naproxen, Ultram, hydrochlorothiazide, lisinopril, Ativan, potassium were all discontinued. The patient doing much better at the time of discharge. Walking unsupported. The patient is told to lose weight and the patient is AO x3, conversing normally. The patient had very minimal pain. The patient did have a neurological workup by Dr. Leon. All other workup was negative and included brain CT, EEG and brain MRI that showed some chronic changes. The patient also seen by Dr. Constantino from Psychiatry. EXAM: Lungs: Fair air entry. Psych: AO x3. DISCHARGE MEDICATIONS: 1. Paxil 20 mg a day. 2. Norvasc 10 mg a day. 3. Tricor 134 mg q.h.s. 4. Oxybutynin ER 50 mg q.h.s. 5. Zantac 300 mg q.h.s. 6. Flomax 0.8 mg at bedtime. 7. Coreg 6.25 p.o. b.i.d. 8. Aspirin 81 mg a day. 9. Melatonin 3 mg q.h.s. p.r.n. 10.Trazodone 100 mg q.h.s. 11.Baclofen 5 mg p.o. t.i.d. p.r.n. 12.Naproxen 250 mg p.o. b.i.d. p.r.n. Follow Dr. Valentin in 3 days, follow with Dr. Leon in one week. Labs: BMP in 3-[address] Valentin. DURAN / IJN: [id number] /
== END 2018-02-27 16:40 | DRG 92 ==
LOC: EC 23:25 → 5MS5E 02-25 05:41
PROVIDERS: ADMIT Hospitalist; ATTEND Hospitalist
DX: G92 Toxic encephalopathy (principal); N17.9 Acute kidney failure, unspecified; Z68.41 Body mass index [BMI] 40.0-44.9, adult; E66.01 Morbid (severe) obesity due to excess calories; J44.9 Chronic obstructive pulmonary disease, unspecified; T42.6X5A Adverse effect of other antiepileptic and sedative-hypnotic drugs, initial encounter; T40.4X5A Adverse effect of other synthetic narcotics, initial encounter; T42.8X5A Adverse effect of antiparkinsonism drugs and other central muscle-tone depressants, initial encounter; T50.2X5A Adverse effect of carbonic-anhydrase inhibitors, benzothiadiazides and other diuretics, initial encounter; N40.0 Benign prostatic hyperplasia without lower urinary tract symptoms; G89.29 Other chronic pain; M51.37 Other intervertebral disc degeneration, lumbosacral region; M48.07 Spinal stenosis, lumbosacral region; M51.27 Other intervertebral disc displacement, lumbosacral region; F41.9 Anxiety disorder, unspecified; F40.240 Claustrophobia; K21.9 Gastro-esophageal reflux disease without esophagitis; E78.5 Hyperlipidemia, unspecified; M19.91 Primary osteoarthritis, unspecified site; G25.81 Restless legs syndrome; F32.9 Major depressive disorder, single episode, unspecified; L98.9 Disorder of the skin and subcutaneous tissue, unspecified; M54.41 Lumbago with sciatica, right side; R26.9 Unspecified abnormalities of gait and mobility; I83.90 Asymptomatic varicose veins of unspecified lower extremity; M54.42 Lumbago with sciatica, left side; K44.9 Diaphragmatic hernia without obstruction or gangrene; Z79.82 Long term (current) use of aspirin; Z79.1 Long term (current) use of non-steroidal anti-inflammatories (NSAID); Z79.891 Long term (current) use of opiate analgesic; Z79.51 Long term (current) use of inhaled steroids; Z79.899 Other long term (current) drug therapy; Z86.73 Personal history of transient ischemic attack (TIA), and cerebral infarction without residual deficits; Z90.49 Acquired absence of other specified parts of digestive tract; Z87.11 Personal history of peptic ulcer disease; Z87.820 Personal history of traumatic brain injury; Z87.891 Personal history of nicotine dependence; Z88.5 Allergy status to narcotic agent; Z88.8 Allergy status to other drugs, medicaments and biological substances; Z83.3 Family history of diabetes mellitus; Z80.8 Family history of malignant neoplasm of other organs or systems
CPT/HCPCS: 36415; 70450; 70551; 71046; 72148; 74018; 80048; 80053; 80306; 81001; 82550; 82553; 84484; 85025; 85610; 85730; 93005; 94760; 95819; 96374; 99285

== ENCOUNTER 2018-05-09 15:06 | Observation (INO) | payer MEDICARE ==
[2018-05-09] MEDS ORDERED: ASPIRIN 81 MG PO STA (15:15)
[2018-05-09] MEDS ORDERED: NITROGLYCERIN OINT 1 INCH/GM PACKET TOPICAL STA (15:15)
--- NOTE | 2018-05-09 15:17 | ED ---
General Adult HPI - General Source: patient, RN notes reviewed Mode of arrival: wheelchair Limitations: no limitations <Anthony Miranda - Last Filed: 05/09/18 16:22> <Norma Leavitt - Last Filed: 05/09/18 18:07> - General Chief complaint: Chest Pain Stated complaint: Chest pain Time Seen by Provider: 05/09/18 15:10 - History of Present Illness Initial comments: This is a 68-year-old male comes in with a past medical history significant for high blood pressure. Patient states he's been having chest pain high blood pressure mild headache and mild shortness of breath. Patient states his been intermittent for about a week he was seen and worked up at [facility] but they didn't find anything. Patient states the pains have continued and worsened so he decided come to this emergency department. Patient denies any fever chills or cough. Patient denies abdominal pain patient denies nausea vomiting diarrhea. Patient denies lightheadedness but states he is dizzy when he walks and has been that way for one week. Patient states had multiple CAT scans at [facility] they did not find anything. Patient states he thinks his dizziness is worse when his blood pressure is high and he bent over 200 lately. (Anthony Miranda) - Related Data Home Medications Medication Instructions Recorded Confirmed PARoxetine [Paxil] 40 mg PO DAILY 11/27/14 05/09/18 Fenofibrate,Micronized 134 mg PO DAILY 11/28/14 05/09/18 [Fenofibrate] Ranitidine HCl [Zantac] 300 mg PO HS 08/13/17 05/09/18 Tamsulosin HCl [Flomax] 0.8 mg PO HS 08/13/17 05/09/18 Aspirin [Adult Low Dose Aspirin EC] 81 mg PO QAM 10/22/17 05/09/18 Melatonin 3 mg PO HS PRN 10/22/17 05/09/18 traZODone HCL [Desyrel] 200 mg PO HS 02/25/18 05/09/18 Amitriptyline HCl [Elavil] 25 mg PO HS 05/09/18 05/09/18 Carvedilol [Coreg] 25 mg PO BID 05/09/18 05/09/18 Fluticasone Nasal [place] [Flonase 1 spray EA NOSTRIL DAILY 05/09/18 05/09/18 Nasal [place]] Furosemide [Lasix] 10 mg PO DAILY 05/09/18 05/09/18 LORazepam [Ativan] 0.5 mg PO Q6H PRN 05/09/18 05/09/18 Previous Rx's Medication Instructions Recorded Baclofen 5 mg PO TID PRN #1 02/27/18 Naproxen [Naprosyn] 250 mg PO BID PRN #20 tab 02/27/18 Allergies Allergy/AdvReac Type Severity Reaction Status Date / Time atorvastatin [From Lipitor] Allergy Unknown Verified 05/09/18 16:04 codeine AdvReac Nausea & Verified 05/09/18 16:04 Vomiting gabapentin AdvReac Hallucinati Verified 05/09/18 16:04 ons Review of Systems ROS Other: All systems not noted in ROS Statement are negative. <Anthony Miranda - Last Filed: 05/09/18 16:22> ROS Other: All systems not noted in ROS Statement are negative. <Norma Leavitt - Last Filed: 05/09/18 18:07> ROS Statement: Those systems with pertinent positive or pertinent negative responses have been documented in the HPI. Past Medical History Past Medical History: Asthma, COPD, CVA/TIA, GERD/Reflux, Hyperlipidemia, Osteoarthritis (OA), Prostate Disorder, Skin Disorder Additional Past Medical History / Comment(s): Recent bilateral leg swelling which pt states is d/t neurontin, restless Leg Syndrome, low back pain and bilateral sciatica, hiatal hernia, stomach ulcer, TIA 8 years ago, vertigo, past concussion from football injury. History of Any Multi-Drug Resistant Organisms: None Reported Past Surgical History: Appendectomy, Cholecystectomy, Heart Catheterization, Tonsillectomy Additional Past Surgical History / Comment(s): Cardiac cath 10/29/17 normal, cyst removed from right hand, colonoscopy/polypectomy Past Anesthesia/Blood Transfusion Reactions: Motion Sickness Additional Past Anesthesia/Blood Transfusion Reaction / Comment(s): claustrophobia Past Psychological History: Anxiety, Depression Smoking Status: Former smoker Past Alcohol Use History: None Reported Past Drug Use History: None Reported - Past Family History Mother Family Medical History: Diabetes Mellitus Additional Family Medical History / Comment(s): Mother at the age of 86yrs. Father Family Medical History: Cancer Additional Family Medical History / Comment(s): Throat cancer and at the age of 50yrs. <Anthony Miranda - Last Filed: 05/09/18 16:22> General Exam Limitations: no limitations <Anthony Miranda - Last Filed: 05/09/18 16:22> <Norma Leavitt - Last Filed: 05/09/18 18:07> - General Exam Comments Initial Comments: GENERAL: Patient is well-developed and well-nourished. Patient is nontoxic and well- hydrated and is in mild distress. ENT: Neck is soft and supple. No significant lymphadenopathy is noted. Oropharynx is clear. Moist mucous membranes. Neck has full range of motion without eliciting any pain. EYES: The sclera were anicteric and conjunctiva were pink and moist. Extraocular movements were intact and pupils were equal round and reactive to light. Eyelids were unremarkable. PULMONARY: Unlabored respirations. Good breath sounds bilaterally. No audible rales rhonchi or wheezing was noted. CARDIOVASCULAR: There is a regular rate and rhythm without any murmurs gallops or rubs. ABDOMEN: Soft and nontender with normal bowel sounds. No palpable organomegaly was noted. There is no palpable pulsatile mass. SKIN: Skin is clear with no lesions or rashes and otherwise unremarkable. NEUROLOGIC: Patient is alert and oriented x3. Cranial nerves II through XII are grossly intact. Motor and sensory are also intact. Normal speech, volume and content. Symmetrical smile. MUSCULOSKELETAL: Normal extremities with adequate strength and full range of motion. No lower extremity swelling or edema. LYMPHATICS: No significant lymphadenopathy is noted PSYCHIATRIC: Normal psychiatric evaluation. Normal interpersonal interactions appears functionally intact in deals appropriately with others. No signs of depression. No signs of anxiety. (Anthony Miranda) Course <Anthony Miranda - Last Filed: 05/09/18 16:22> <Norma Leavitt - Last Filed: 05/09/18 18:07> Vital Signs 05/09/18 05/09/18 05/09/18 15:08 15:45 16:15 Temperature 97.8 F Pulse Rate 60 59 L 58 L Respiratory 18 20 18 Rate Blood Pressure 181/100 150/71 153/82 O2 Sat by Pulse 97 98 99 Oximetry 05/09/18 17:15 Temperature Pulse Rate 57 L Respiratory 18 Rate Blood Pressure 160/82 O2 Sat by Pulse 99 Oximetry Reason was reassessed at 1800, CT angios unremarkable her blood pressure is 163 systolic CBC troponin compressive metabolic panel are unremarkable but his ongoing chest pain is to be evaluated further and I recommended admission he agrees with theplan. He will be admitted to Dr. Amaro's service (Norma Leavitt) Medical Decision Making - Lab Data Result diagrams: 05/09/18 15:40 05/09/18 15:40 <Anthony Miranda - Last Filed: 05/09/18 16:22> - Lab Data Result diagrams: 05/09/18 15:40 05/09/18 15:40 <Norma Leavitt - Last Filed: 05/09/18 18:07> - Medical Decision Making EKG shows a normal sinus rhythm at 71 bpm IA interval is 182 QRS is 82 QT interval 408 QTC is 443. Patient's EKG shows no ST segment elevation or depression or T wave abnormalities are noted. Dr. Umanzor will be taking over the care of the patient at 4:30. (Anthony Miranda) - Lab Data Lab Results 05/09/18 05/09/18 05/09/18 Range/Units 15:40 15:40 15:40 WBC 7.5 (3.8-10.6) k/uL RBC 4.44 (4.30-5.90) m/uL Hgb 13.1 (13.0-17.5) gm/dL Hct 40.6 (39.0-53.0) % MCV 91.4 (80.0-100.0) fL MCH 29.5 (25.0-35.0) pg MCHC 32.3 (31.0-37.0) g/dL RDW 13.7 (11.5-15.5) % Plt Count 250 (150-450) k/uL Neutrophils % 67 % Lymphocytes % 19 % Monocytes % 8 % Eosinophils % 3 % Basophils % 1 % Neutrophils # 5.0 (1.3-7.7) k/uL Lymphocytes # 1.4 (1.0-4.8) k/uL Monocytes # 0.6 (0-1.0) k/uL Eosinophils # 0.3 (0-0.7) k/uL Basophils # 0.1 (0-0.2) k/uL PT (9.0-12.0) sec INR (<1.2) APTT (22.0-30.0) sec D-Dimer (<0.60) mg/L FEU Sodium 139 (137-145) mmol/L Potassium 4.0 (3.5-5.1) mmol/L Chloride 102 (98-107) mmol/L Carbon Dioxide 31 H (22-30) mmol/L Anion Gap 6 mmol/L BUN 12 (9-20) mg/dL Creatinine 0.90 (0.66-1.25) mg/dL Est GFR (CKD-EPI)AfAm >90 (>60 ml/min/1.73 sqM) Est GFR (CKD-EPI)NonAf 86 (>60 ml/min/1.73 sqM) Glucose 104 H (74-99) mg/dL Calcium 9.0 (8.4-10.2) mg/dL Magnesium 2.0 (1.6-2.3) mg/dL Total Bilirubin 0.4 (0.2-1.3) mg/dL AST 23 (17-59) U/L ALT 24 (21-72) U/L Alkaline Phosphatase 34 L (38-126) U/L Total Creatine Kinase 56 (55-170) U/L CK-MB (CK-2) 0.9 (0.0-2.4) ng/mL CK-MB (CK-2) Rel Index 1.6 Troponin I <0.012 (0.000-0.034) ng/mL Total Protein 6.4 (6.3-8.2) g/dL Albumin 3.6 (3.5-5.0) g/dL 05/09/18 Range/Units 15:40 WBC (3.8-10.6) k/uL RBC (4.30-5.90) m/uL Hgb (13.0-17.5) gm/dL Hct (39.0-53.0) % MCV (80.0-100.0) fL MCH (25.0-35.0) pg MCHC (31.0-37.0) g/dL RDW (11.5-15.5) % Plt Count (150-450) k/uL Neutrophils % % Lymphocytes % % Monocytes % % Eosinophils % % Basophils % % Neutrophils # (1.3-7.7) k/uL Lymphocytes # (1.0-4.8) k/uL Monocytes # (0-1.0) k/uL Eosinophils # (0-0.7) k/uL Basophils # (0-0.2) k/uL PT 11.4 (9.0-12.0) sec INR 1.2 H (<1.2) APTT 24.4 (22.0-30.0) sec D-Dimer 1.08 H (<0.60) mg/L FEU Sodium (137-145) mmol/L Potassium (3.5-5.1) mmol/L Chloride (98-107) mmol/L Carbon Dioxide (22-30) mmol/L Anion Gap mmol/L BUN (9-20) mg/dL Creatinine (0.66-1.25) mg/dL Est GFR (CKD-EPI)AfAm (>60 ml/min/1.73 sqM) Est GFR (CKD-EPI)NonAf (>60 ml/min/1.73 sqM) Glucose (74-99) mg/dL Calcium (8.4-10.2) mg/dL Magnesium (1.6-2.3) mg/dL Total Bilirubin (0.2-1.3) mg/dL AST (17-59) U/L ALT (21-72) U/L Alkaline Phosphatase (38-126) U/L Total Creatine Kinase (55-170) U/L CK-MB (CK-2) (0.0-2.4) ng/mL CK-MB (CK-2) Rel Index Troponin I (0.000-0.034) ng/mL Total Protein (6.3-8.2) g/dL Albumin (3.5-5.0) g/dL Disposition <Anthony Miranda - Last Filed: 05/09/18 16:22> <Norma Leavitt - Last Filed: 05/09/18 18:07> Clinical Impression: Chest pain Disposition: [facility] Condition: Good Referrals: Vincent Valentin MD [Primary Care Provider] - 1-2 days
[2018-05-09] MEDS ORDERED: NITROGLYCERIN SL TABS 0.4 MG TAB SUBLINGUAL PRN ×2 (15:23→18:07)
[2018-05-09 15:56] LABS: Basophils # (A) 0.1 k/uL (0-0.2); Basophils % (A) 1 %; Eosinophils # (A) 0.3 k/uL (0-0.7); Eosinophils % (A) 3 %; HCT 40.6 % (39.0-53.0); HGB 13.1 gm/dL (13.0-17.5); Lymphocytes # (A) 1.4 k/uL (1.0-4.8); Lymphocytes % (A) 19 %; MCH 29.5 pg (25.0-35.0); MCHC 32.3 g/dL (31.0-37.0); MCV 91.4 fL (80.0-100.0); Mean Platelet Volume 7.7; Monocytes # (A) 0.6 k/uL (0-1.0); Monocytes % (A) 8 %; Neutrophils % (A) 67 %; Platelet Count 250 k/uL (150-450); RBC 4.44 m/uL (4.30-5.90); RDW 13.7 % (11.5-15.5); WBC 7.5 k/uL (3.8-10.6)
[2018-05-09 16:06] LABS: ALT 24 U/L (21-72); AST 23 U/L (17-59); Albumin 3.6 g/dL (3.5-5.0); Alkaline Phosphatase 34 U/L (38-126); Anion Gap 6 mmol/L; Blood Urea Nitrogen 12 mg/dL (9-20); Carbon Dioxide 31 mmol/L (22-30); Chloride 102 mmol/L (98-107); Glucose 104 mg/dL (74-99); Sodium 139 mmol/L (137-145); Total Bilirubin 0.4 mg/dL (0.2-1.3); Total Protein 6.4 g/dL (6.3-8.2)
--- NOTE | 2018-05-09 16:09 | XR ---
EXAMINATION TYPE: XR chest 2V DATE OF EXAM: 05/09/2018 COMPARISON: 02/25/2018 HISTORY: Chest pain. History of COPD and asthma. TECHNIQUE: Frontal and lateral views of the chest are obtained. FINDINGS: There is minimal bibasilar subsegmental strand-like atelectasis. There is no focal air spa ce opacity, pleural effusion, or pneumothorax seen. The cardiac silhouette size is within normal swanson its. Lining of the diaphragms on the lateral image is compatible with the patient's provided history of COPD. The osseous structures are intact. Mild multilevel degenerative changes of thoracic spine ar e noted. IMPRESSION: Normal bibasilar strand-like subsegmental atelectasis. No focal consolidation to suggest pneumonia.
[2018-05-09 16:11] LABS: INR 1.2 (<1.2); Partial Thromboplastin Time 24.4 sec (22.0-30.0); Prothrombin Time 11.4 sec (9.0-12.0)
[2018-05-09 16:16] LABS: Creatine Kinase 56 U/L (55-170); D-Dimer 1.08 mg/L FEU (<0.60)
[2018-05-09 16:29] LABS: Creatine Kinase MB 0.9 ng/mL (0.0-2.4); Troponin I <0.012 ng/mL (0.000-0.034)
--- NOTE | 2018-05-09 17:02 | CT ---
EXAMINATION TYPE: CT chest angio for PE DATE OF EXAM: 05/09/2018 COMPARISON: NONE HISTORY: Chest pain x [address] DLP: 566.4 mGycm. Automated Exposure Control for Dose Reduction was Utilized. CONTRAST: CTA scan of the thorax is performed with IV Contrast, patient injected with 80 mL of Isovue 300, pulm onary embolism protocol. MIP Images are created on CT scanner and reviewed. FINDINGS: LUNGS: There is minimal bibasilar subsegmental atelectasis. The lungs are grossly clear, there is no concerning parenchymal mass or nodule identified. There is no pleural effusion or pneumothorax seen . The tracheobronchial tree is patent. MEDIASTINUM: There is satisfactory enhancement of the pulmonary artery and its branches, there is no CT evidence for pulmonary embolism. There are no greater than 1 cm hilar or mediastinal lymph nodes. No cardiomegaly or pericardial effusion is seen. Mild left main and left anterior descending coron xin artery calcifications are seen. OTHER: Mild multilevel degenerative change of the thoracic spine is noted. IMPRESSION: 1. No evidence of pulmonary embolus. 2. Minimal bibasilar subsegmental atelectasis. 3. Mild coronary artery calcifications.
[2018-05-09] MEDS ORDERED: MELATONIN 3 MG TABLET PO PRN (18:13)
[2018-05-09] MEDS ORDERED: LORazepam 0.5 MG TAB PO PRN (18:13)
[2018-05-09] MEDS ORDERED: BACLOFEN 10 MG TAB PO PRN (18:13)
[2018-05-09 18:58] VITALS: BMI 41.8
[2018-05-09] MEDS: CARVEDILOL 12.5 MG TAB PO SCH (20:44)
[2018-05-09] MEDS ORDERED: traZODone HCL 100 MG TAB PO SCH (21:00)
[2018-05-09] MEDS ORDERED: FAMOTIDINE 20 MG TAB PO SCH (21:00)
[2018-05-09] MEDS ORDERED: AMITRIPTYLINE HCL 25 MG TAB PO SCH (21:00)
[2018-05-09] MEDS ORDERED: TAMSULOSIN 0.4 MG CAP.ER.24H PO SCH (21:00)
[2018-05-09] MEDS: NITROGLYCERIN OINT 1 INCH/GM PACKET TOPICAL SCH (21:59)
[2018-05-09 22:03] LABS: Creatine Kinase 50 U/L (55-170)
[2018-05-09 22:15] LABS: Creatine Kinase MB 0.7 ng/mL (0.0-2.4); Troponin I <0.012 ng/mL (0.000-0.034)
[2018-05-09] MEDS: NAPROXEN 250 MG TAB PO PRN (23:27)
[2018-05-09 23:52] LABS: Cholesterol 130 mg/dL (<200); HDL Cholesterol 37 mg/dL (40-60); LDL Cholesterol,Calculated 72 mg/dL (0-99); Triglycerides 103 mg/dL (<150)
[2018-05-10 04:28] LABS: Creatine Kinase 42 U/L (55-170)
[2018-05-10 04:41] LABS: Creatine Kinase MB 0.7 ng/mL (0.0-2.4); Troponin I <0.012 ng/mL (0.000-0.034)
[2018-05-10] MEDS: NITROGLYCERIN OINT 1 INCH/GM PACKET TOPICAL SCH ×2 (05:19→14:32)
--- NOTE | 2018-05-10 07:49 | P.CRDCN ---
History of Present Illness Consult date: 05/10/18 Chief complaint: Chest discomfort History of present illness: This is a pleasant 68-year-old gentleman who sees Dr. Jordan in the office as an outpatient with a past medical history significant for hypertension as well as mild CAD based on heart catheterization was performed in October 2017 and also obesity, presented to the hospital complaining of chest discomfort. The patient has noticed that his blood pressure has not been well-controlled lately. His blood pressure at home before he presented to the hospital was more than 200 mmHg systolic. A Betadine the blood pressure goes up the patient experience discomfort in the chest area no shortness of breath. No dizziness or lightheadedness. No syncope. The chest discomfort is atypical and he described it as a sharp kind of discomfort lasted only for a few seconds. Its in the middle of the chest. And no radiation. The EKG showed sinus rhythm without any significant ST or T-wave abnormalities. The cardiac enzymes were checked and came in to be unremarkable. The d-dimer came in to be alleviated but the computed tomography scan of the chest did not show any evidence of PE. The patient blood pressure in the hospital was not well-controlled on Coreg 25 mg by mouth twice a day. I am going to add Norvasc at 5 mg by mouth daily to the current medical regimen. From the cardiovascular standpoint of view, the patient can be discharged home. Past Medical History Past Medical History: Asthma, COPD, CVA/TIA, GERD/Reflux, Hyperlipidemia, Osteoarthritis (OA), Prostate Disorder, Skin Disorder Additional Past Medical History / Comment(s): Recent bilateral leg swelling which pt states is d/t neurontin, restless Leg Syndrome, low back pain and bilateral sciatica, hiatal hernia, stomach ulcer, TIA 8 years ago, vertigo, past concussion from football injury. History of Any Multi-Drug Resistant Organisms: None Reported Past Surgical History: Appendectomy, Cholecystectomy, Heart Catheterization, Tonsillectomy Additional Past Surgical History / Comment(s): Cardiac cath 10/29/17 normal, cyst removed from right hand, colonoscopy/polypectomy Past Anesthesia/Blood Transfusion Reactions: Motion Sickness Additional Past Anesthesia/Blood Transfusion Reaction / Comment(s): claustrophobia Past Psychological History: Anxiety, Depression Additional Psychological History / Comment(s): Pt resides alone. He states he has significant depression d/t spouses fall of 2016. Pt uses no assistive device. He drives. Pt states his sayra was managing his medications. Smoking Status: Former smoker Past Alcohol Use History: None Reported Additional Past Alcohol Use History / Comment(s): Started smoking at age 13, smoked 1 1/2 ppd and quit 1987 Past Drug Use History: None Reported - Past Family History Mother Family Medical History: Diabetes Mellitus Additional Family Medical History / Comment(s): Mother at the age of 86yrs. Father Family Medical History: Cancer Additional Family Medical History / Comment(s): Throat cancer and at the age of 50yrs. Medications and Allergies Home Medications Medication Instructions Recorded Confirmed Type PARoxetine [Paxil] 40 mg PO DAILY 11/27/14 05/09/18 History Fenofibrate,Micronized 134 mg PO DAILY 11/28/14 05/09/18 History [Fenofibrate] Ranitidine HCl [Zantac] 300 mg PO HS 08/13/17 05/09/18 History Tamsulosin HCl [Flomax] 0.8 mg PO HS 08/13/17 05/09/18 History Aspirin [Adult Low Dose Aspirin EC] 81 mg PO QAM 10/22/17 05/09/18 History Melatonin 3 mg PO HS PRN 10/22/17 05/09/18 History traZODone HCL [Desyrel] 200 mg PO HS 02/25/18 05/09/18 History Baclofen 5 mg PO TID PRN #1 02/27/18 05/09/18 Rx Naproxen [Naprosyn] 250 mg PO BID PRN #20 tab 02/27/18 05/09/18 Rx Amitriptyline HCl [Elavil] 25 mg PO HS 05/09/18 05/09/18 History Carvedilol [Coreg] 25 mg PO BID 05/09/18 05/09/18 History Fluticasone Nasal [place] [Flonase 1 spray EA NOSTRIL DAILY 05/09/18 05/09/18 History Nasal [place]] Furosemide [Lasix] 10 mg PO DAILY 05/09/18 05/09/18 History LORazepam [Ativan] 0.5 mg PO Q6H PRN 05/09/18 05/09/18 History Allergies Allergy/AdvReac Type Severity Reaction Status Date / Time atorvastatin [From Lipitor] Allergy Unknown Verified 05/09/18 16:04 codeine AdvReac Nausea & Verified 05/09/18 16:04 Vomiting gabapentin AdvReac Hallucinati Verified 05/09/18 16:04 ons Physical Exam Vitals: Vital Signs Temp Pulse Pulse Resp BP BP Pulse Ox 05/10/18 04:15 97.7 F 57 L 18 142/70 95 05/10/18 04:00 18 05/10/18 00:00 18 05/09/18 23:32 57 L 18 138/68 97 05/09/18 21:46 62 16 148/76 97 05/09/18 20:00 16 05/09/18 19:02 97.6 F 55 L 14 146/74 97 05/09/18 18:15 98.5 F 57 L 20 151/88 99 05/09/18 17:15 57 L 18 160/82 99 05/09/18 16:15 58 L 18 153/82 99 05/09/18 15:45 59 L 20 150/71 98 05/09/18 15:08 97.8 F 60 18 181/100 97 Intake and Output 05/09/18 05/10/18 05/10/18 22:59 06:59 14:59 Other: Voiding Method Toilet Toilet # Voids 2 Weight 114.1 kg - Constitutional General appearance: no acute distress - Respiratory Respiratory: bilateral: CTA - Cardiovascular Rhythm: regular Heart sounds: normal: S1, S2 Results 05/09/18 15:40 05/09/18 15:40 Cardiac Enzymes 05/09/18 05/09/18 05/09/18 Range/Units 15:40 15:40 21:34 AST 23 (17-59) U/L CK-MB (CK-2) 0.9 0.7 (0.0-2.4) ng/mL Troponin I <0.012 <0.012 (0.000-0.034) ng/mL 05/10/18 Range/Units 03:42 AST (17-59) U/L CK-MB (CK-2) 0.7 (0.0-2.4) ng/mL Troponin I <0.012 (0.000-0.034) ng/mL Coagulation 05/09/18 Range/Units 15:40 PT 11.4 (9.0-12.0) sec APTT 24.4 (22.0-30.0) sec Lipids 05/09/18 Range/Units 15:40 Triglycerides 103 (<150) mg/dL Cholesterol 130 (<200) mg/dL HDL Cholesterol 37 L (40-60) mg/dL CBC 05/09/18 Range/Units 15:40 WBC 7.5 (3.8-10.6) k/uL RBC 4.44 (4.30-5.90) m/uL Hgb 13.1 (13.0-17.5) gm/dL Hct 40.6 (39.0-53.0) % Plt Count 250 (150-450) k/uL Comprehensive Metabolic Panel 05/09/18 Range/Units 15:40 Sodium 139 (137-145) mmol/L Potassium 4.0 (3.5-5.1) mmol/L Chloride 102 (98-107) mmol/L Carbon Dioxide 31 H (22-30) mmol/L BUN 12 (9-20) mg/dL Creatinine 0.90 (0.66-1.25) mg/dL Glucose 104 H (74-99) mg/dL Calcium 9.0 (8.4-10.2) mg/dL AST 23 (17-59) U/L ALT 24 (21-72) U/L Alkaline Phosphatase 34 L (38-126) U/L Total Protein 6.4 (6.3-8.2) g/dL Albumin 3.6 (3.5-5.0) g/dL Current Medications Generic Name Dose Route Start Last Admin Trade Name Freq PRN Reason Stop Dose Admin Amitriptyline HCl 25 mg 05/09/18 21:00 05/09/18 20:44 Elavil PO 25 mg HS DESTINI Administration Aspirin 325 mg 05/10/18 09:00 Aspirin PO DAILY DESTINI Baclofen 5 mg 05/09/18 18:13 Lioresal PO TID PRN Spasms Carvedilol 25 mg 05/09/18 21:00 05/09/18 20:44 Coreg PO 25 mg BID DESTINI Administration Famotidine 40 mg 05/09/18 21:00 05/09/18 20:44 Pepcid PO 40 mg HS DESTINI Administration Fenofibrate 160 mg 05/10/18 09:00 Lofibra PO DAILY DESTINI Fluticasone Propionate 1 spray 05/10/18 09:00 Flonase Nasal [place] EA NOSTRIL DAILY DESTINI Furosemide 10 mg 05/10/18 09:00 Lasix PO DAILY DESTINI Lorazepam 0.5 mg 05/09/18 18:13 Ativan PO Q6H PRN Anxiety Melatonin 3 mg 05/09/18 18:13 05/09/18 20:45 Melatonin PO 3 mg HS PRN Administration sleep Naproxen 250 mg 05/09/18 21:41 05/09/18 23:27 Naprosyn PO 250 mg BID PRN Administration Pain Nitroglycerin 1 inch 05/10/18 00:00 05/10/18 05:19 Nitro-Bid Oint TOPICAL Not Given Q6HR DESTINI Paroxetine HCl 40 mg 05/10/18 09:00 Paxil PO DAILY DESTINI Tamsulosin HCl 0.8 mg 05/09/18 21:00 05/09/18 20:45 Flomax PO 0.8 mg HS DESTINI Administration Trazodone HCl 200 mg 05/09/18 21:00 05/09/18 20:45 Desyrel PO 200 mg HS DESTINI Administration Intake and Output 05/09/18 05/10/18 05/10/18 22:59 06:59 14:59 Other: Voiding Method Toilet Toilet # Voids 2 Weight 114.1 kg 05/09/18 15:40 05/09/18 15:40 Assessment and Plan Assessment: Assessment #1 uncontrolled hypertension #2 atypical chest discomfort secondary to the above #3 obesity Plan #1 add Norvasc to the current medical regimen #2 the patient was ruled out for acute coronary event #3 recent heart catheterization in October 2017 showed mild nonobstructive CAD #4 from the cardiac vascular standpoint overview, the patient can be discharged home. I would recommend obtaining a CT study as an outpatient. Thank you for allowing us participate in his care
[2018-05-10] MEDS: CARVEDILOL 12.5 MG TAB PO SCH (08:23)
[2018-05-10 08:32] VITALS: RESP 16
[2018-05-10] MEDS ORDERED: ASPIRIN 325 MG TAB PO SCH (09:00)
[2018-05-10] MEDS ORDERED: PARoxetine 20 MG TAB PO SCH (09:00)
[2018-05-10] MEDS ORDERED: FENOFIBRATE 160 MG TAB PO SCH (09:00)
[2018-05-10] MEDS ORDERED: FLUTICASONE 50MCG/SPRAY NASAL 16GM EA NOSTRIL SCH (09:00)
[2018-05-10] MEDS ORDERED: amLODIPine 5 MG TAB PO SCH (09:00)
[2018-05-10] MEDS ORDERED: FUROSEMIDE 10 MG TAB PO SCH (09:00)
[2018-05-10] MEDS: NAPROXEN 250 MG TAB PO PRN (09:06)
[2018-05-10 12:24] VITALS: PULSE 63; TEMP 98.1
[2018-05-10 12:42] VITALS: BP 164/89
--- NOTE | 2018-05-11 00:44 | P.HPIM ---
History of Present Illness H&P Date: 05/10/18 Chief Complaint: Chest pain Patient is a 68-year-old male with a known history of hypertension, hyperlipidemia, GERD, CVA/TIA, COPD and multiple other medical problems with recent cardiac catheterization in October 2017 showed mild nonobstructive coronary artery disease came to ER with complaints of chest pain and uncontrolled hypertension along with headache and shortness of breath.Patient states his been intermittent for about a week he was seen and worked up at [facility] but they didn't find anything. Patient states the pains have continued and worsened so he decided come to this emergency department. No dizziness or lightheadedness. No syncope. The chest discomfort is atypical and he described it as a sharp kind of discomfort lasted only for a few seconds. Its in the middle of the chest. And no radiation. Patient denies any fever chills or cough. Patient denies abdominal pain patient denies nausea vomiting diarrhea. Patient denies lightheadedness but states he is dizzy when he walks and has been that way for one week. Patient states had multiple CAT scans at [facility] they did not find anything. Patient states he thinks his dizziness is worse when his blood pressure is high and went over 200 lately. The EKG showed sinus rhythm without any significant ST or T-wave abnormalities. Troponin 3 negative.. The d-dimer slightly elevated but the computed tomography scan of the chest did not show any evidence of PE. SBP greater than 200 on admission. Review of Systems Constitutional: Patient denies any fever or chills . No generalized weakness or weight loss. Abdomen: Patient denied nausea vomiting and diarrhea and abdominal pain. Cardiovascular: Patient does have chest tightness along with shortness of breath. No leg swelling. No palpitations.. Respiratory: patient denied any cough is from production. No shortness of breath Neurologic: Patient denied any numbness or tingling headache. Musculoskeletal: Patient denies any complaints of joint swelling or deformity. Skin: Negative Psychiatric: Negative Endocrine: No heat or cold intolerance. No recent weight gain. Genitourinary: No dysuria or hematuria. All other 14 point ROS negative except the above Past Medical History Past Medical History: Asthma, COPD, CVA/TIA, GERD/Reflux, Hyperlipidemia, Osteoarthritis (OA), Prostate Disorder, Skin Disorder Additional Past Medical History / Comment(s): Recent bilateral leg swelling which pt states is d/t neurontin, restless Leg Syndrome, low back pain and bilateral sciatica, hiatal hernia, stomach ulcer, TIA 8 years ago, vertigo, past concussion from football injury. History of Any Multi-Drug Resistant Organisms: None Reported Past Surgical History: Appendectomy, Cholecystectomy, Heart Catheterization, Tonsillectomy Additional Past Surgical History / Comment(s): Cardiac cath 10/29/17 normal, cyst removed from right hand, colonoscopy/polypectomy Past Anesthesia/Blood Transfusion Reactions: Motion Sickness Additional Past Anesthesia/Blood Transfusion Reaction / Comment(s): claustrophobia Past Psychological History: Anxiety, Depression Additional Psychological History / Comment(s): Pt resides alone. He states he has significant depression d/t spouses fall of 2016. Pt uses no assistive device. He drives. Pt states his sayra was managing his medications. Smoking Status: Former smoker Past Alcohol Use History: None Reported Additional Past Alcohol Use History / Comment(s): Started smoking at age 13, smoked 1 1/2 ppd and quit 1986 Past Drug Use History: None Reported - Past Family History Mother Family Medical History: Diabetes Mellitus Additional Family Medical History / Comment(s): Mother at the age of 86yrs. Father Family Medical History: Cancer Additional Family Medical History / Comment(s): Throat cancer and at the age of 50yrs. Medications and Allergies Home Medications Medication Instructions Recorded Confirmed Type PARoxetine [Paxil] 40 mg PO DAILY 11/27/14 05/09/18 History Fenofibrate,Micronized 134 mg PO DAILY 11/28/14 05/09/18 History [Fenofibrate] Ranitidine HCl [Zantac] 300 mg PO HS 08/13/17 05/09/18 History Tamsulosin HCl [Flomax] 0.8 mg PO HS 08/13/17 05/09/18 History Aspirin [Adult Low Dose Aspirin EC] 81 mg PO QAM 10/22/17 05/09/18 History Melatonin 3 mg PO HS PRN 10/22/17 05/09/18 History traZODone HCL [Desyrel] 200 mg PO HS 02/25/18 05/09/18 History Baclofen 5 mg PO TID PRN #1 02/27/18 05/09/18 Rx Naproxen [Naprosyn] 250 mg PO BID PRN #20 tab 02/27/18 05/09/18 Rx Amitriptyline HCl [Elavil] 25 mg PO HS 05/09/18 05/09/18 History Carvedilol [Coreg] 25 mg PO BID 05/09/18 05/09/18 History Fluticasone Nasal [place] [Flonase 1 spray EA NOSTRIL DAILY 05/09/18 05/09/18 History Nasal [place]] Furosemide [Lasix] 10 mg PO DAILY 05/09/18 05/09/18 History LORazepam [Ativan] 0.5 mg PO Q6H PRN 05/09/18 05/09/18 History amLODIPine [Norvasc] 5 mg PO DAILY #30 tab 05/10/18 Rx Allergies Allergy/AdvReac Type Severity Reaction Status Date / Time atorvastatin [From Lipitor] Allergy Unknown Verified 05/09/18 16:04 codeine AdvReac Nausea & Verified 05/09/18 16:04 Vomiting gabapentin AdvReac Hallucinati Verified 05/09/18 16:04 ons Physical Exam Vitals: Vital Signs Temp Pulse Pulse Resp BP BP Pulse Ox 05/10/18 08:33 96 05/10/18 08:00 97.7 F 59 L 16 168/81 96 05/10/18 04:15 97.7 F 57 L 18 142/70 95 05/10/18 04:00 18 05/10/18 00:00 18 05/09/18 23:32 57 L 18 138/68 97 05/09/18 21:46 62 16 148/76 97 05/09/18 20:00 16 05/09/18 19:02 97.6 F 55 L 14 146/74 97 05/09/18 18:15 98.5 F 57 L 20 151/88 99 05/09/18 17:15 57 L 18 160/82 99 05/09/18 16:15 58 L 18 153/82 99 05/09/18 15:45 59 L 20 150/71 98 05/09/18 15:08 97.8 F 60 18 181/100 97 Intake and Output 05/09/18 05/10/18 05/10/18 22:59 06:59 14:59 Other: Voiding Method Toilet Toilet Toilet # Voids 2 1 Weight 114.1 kg PHYSICAL EXAMINATION: Patient is lying in the bed comfortably, no acute distress, awake alert and oriented.. HEENT: Normocephalic. Neck is supple. Pupils reactive. Nostrils clear. Oral cavity is moist. Ears reveal no drainage. Neck reveals no JVD, carotid bruits, or thyromegaly. CHEST EXAMINATION: Trachea is central. Symmetrical expansion. Lung mackey clear to auscultation and percussion. CARDIAC: Normal S1, S2 with no gallops. No murmurs ABDOMEN: Soft. Bowel sounds normal. No organomegaly. No abdominal bruits. Extremities: reveal no edema. No clubbing or cyanosis Neurologically awake, alert, oriented x3 with well-coordinated movements. No focal deficits noted Skin: No rash or skin lesions. Psychiatric: Coperative. Nonsuicidal Musculoskeletal: No joint swelling or deformity. Normal range of motion. Results CBC & Chem 7: 05/09/18 15:40 05/09/18 15:40 Labs: Abnormal Lab Results - Last 24 Hours (Table) 05/09/18 05/09/18 05/09/18 Range/Units 15:40 15:40 15:40 INR 1.2 H (<1.2) D-Dimer 1.08 H (<0.60) mg/L FEU Carbon Dioxide 31 H (22-30) mmol/L Glucose 104 H (74-99) mg/dL Alkaline Phosphatase 34 L (38-126) U/L Total Creatine Kinase (55-170) U/L HDL Cholesterol 37 L (40-60) mg/dL 05/09/18 05/10/18 Range/Units 21:34 03:42 INR (<1.2) D-Dimer (<0.60) mg/L FEU Carbon Dioxide (22-30) mmol/L Glucose (74-99) mg/dL Alkaline Phosphatase (38-126) U/L Total Creatine Kinase 50 L 42 L (55-170) U/L HDL Cholesterol (40-60) mg/dL Thrombosis Risk Factor Assmnt - DVT/VTE Prophylaxis DVT/VTE Prophylaxis: Pharmacologic Prophylaxis ordered - Choose All That Apply Any of the Below Risk Factors Present?: Yes Each Factor Represents 1 point: Obesity (BMI >25) Other Risk Factors: Yes Each Risk Factor Represents 2 Points: Age 61-74 years Thrombosis Risk Factor Assessment Total Risk Factor Score: 3 Thrombosis Risk Factor Assessment Level: Moderate Risk Assessment and Plan Assessment: Uncontrolled hypertension/hypertensive urgency on admission Atypical chest pain/pressure likely due to uncontrolled hypertension Morbid obesity with BMI 41.9 COPD/asthma History of CVA/TIA with no residual weakness GERD Hyperlipidemia Osteoarthritis BPH Chronic low back pain and bilateral sciatica Anxiety/depression Previous history of smoking Plan: Patient will be continued on blood pressure medications and Norvasc was added as per cardiology recommendations. ACS ruled out with serial EKGs and troponins are negative. Recent cardiac catheterization in October 2017 showed mild nonobstructive coronary disease. Continue with telemetry monitoring. Cardiology has been consulted and further recommendations based on the clinical course. Time with Patient: Greater than 30
--- NOTE | 2018-05-11 00:45 | P.DS ---
Providers Date of admission: 05/09/18 18:07 Expected date of discharge: 05/10/18 Attending physician: Kwame Shankar MD Consults: 05/09/18 18:07 Consult Physician Urgent Consulting Provider: Kirit Herrera Consult Reason/Comments: Chest pain Do you want consulting provider notified?: Yes Primary care physician: Vincent Valentin [facility] Course: Uncontrolled hypertension/hypertensive urgency on admission Atypical chest pain/pressure likely due to uncontrolled hypertension Morbid obesity with BMI 41.9 COPD/asthma History of CVA/TIA with no residual weakness GERD Hyperlipidemia Osteoarthritis BPH Chronic low back pain and bilateral sciatica Anxiety/depression Previous history of smoking Hospital course Patient was continued on home blood pressure medications and Norvasc was added as per cardiology recommendations. ACS ruled out with serial EKGs and troponins are negative. Recent cardiac catheterization in October 2017 showed mild nonobstructive coronary disease. Continued with telemetry monitoring. The patient is asymptomatic currently. Stable to be discharged home and follow up with primary care physician cardiology as an outpatient. Blood pressure is better controlled at this time. Discharge physical examination was done and vitals reviewed. Patient Condition at Discharge: Good Plan - Discharge Summary Discharge Rx Participant: No New Discharge Prescriptions: New amLODIPine [Norvasc] 5 mg PO DAILY #30 tab Continue PARoxetine [Paxil] 40 mg PO DAILY Fenofibrate,Micronized [Fenofibrate] 134 mg PO DAILY Ranitidine HCl [Zantac] 300 mg PO HS Tamsulosin HCl [Flomax] 0.8 mg PO HS Aspirin [Adult Low Dose Aspirin EC] 81 mg PO QAM Melatonin 3 mg PO HS PRN PRN Reason: sleep traZODone HCL [Desyrel] 200 mg PO HS Naproxen [Naprosyn] 250 mg PO BID PRN #20 tab PRN Reason: Pain Baclofen 5 mg PO TID PRN #1 PRN Reason: Spasms LORazepam [Ativan] 0.5 mg PO Q6H PRN PRN Reason: Anxiety Fluticasone Nasal [place] [Flonase Nasal [place]] 1 spray EA NOSTRIL DAILY Furosemide [Lasix] 10 mg PO DAILY Carvedilol [Coreg] 25 mg PO BID Amitriptyline HCl [Elavil] 25 mg PO HS Discharge Medication List PARoxetine [Paxil] 40 mg PO DAILY 11/27/14 [History] Fenofibrate,Micronized [Fenofibrate] 134 mg PO DAILY 11/28/14 [History] Ranitidine HCl [Zantac] 300 mg PO HS 08/13/17 [History] Tamsulosin HCl [Flomax] 0.8 mg PO HS 08/13/17 [History] Aspirin [Adult Low Dose Aspirin EC] 81 mg PO QAM 10/22/17 [History] Melatonin 3 mg PO HS PRN 10/22/17 [History] traZODone HCL [Desyrel] 200 mg PO HS 02/25/18 [History] Baclofen 5 mg PO TID PRN #1 02/27/18 [Rx] Naproxen [Naprosyn] 250 mg PO BID PRN #20 tab 02/27/18 [Rx] Amitriptyline HCl [Elavil] 25 mg PO HS 05/09/18 [History] Carvedilol [Coreg] 25 mg PO BID 05/09/18 [History] Fluticasone Nasal [place] [Flonase Nasal [place]] 1 spray EA NOSTRIL DAILY 05/09/18 [History] Furosemide [Lasix] 10 mg PO DAILY 05/09/18 [History] LORazepam [Ativan] 0.5 mg PO Q6H PRN 05/09/18 [History] amLODIPine [Norvasc] 5 mg PO DAILY #30 tab 05/10/18 [Rx] Follow up Appointment(s)/Referral(s): Vincent Valentin MD [Primary Care Provider] - 3 Days Hiral Jordan MD [STAFF PHYSICIAN] - 1 Week Ambulatory/Diagnostic Orders: Complete Blood Count w/diff [LAB.AMB] Time Frame: 3 Days, Location: None Selected Patient Instructions/Handouts: Chest Pain (GEN), Hypertension (DC) Activity/Diet/Wound Care/Special Instructions: Diet: Low Sodium Discharge Disposition: HOME SELF-CARE
== END 2018-05-10 14:23 | disposition home or self-care (01) ==
LOC: EC 15:06 → 3OBS 18:07
PROVIDERS: ADMIT Internal Medicine; ATTEND Internal Medicine
DX: I16.0 Hypertensive urgency (principal); I10 Essential (primary) hypertension; R07.89 Other chest pain; J44.9 Chronic obstructive pulmonary disease, unspecified; Z68.41 Body mass index [BMI] 40.0-44.9, adult; E66.01 Morbid (severe) obesity due to excess calories; Z86.73 Personal history of transient ischemic attack (TIA), and cerebral infarction without residual deficits; K21.9 Gastro-esophageal reflux disease without esophagitis; E78.5 Hyperlipidemia, unspecified; M19.90 Unspecified osteoarthritis, unspecified site; N40.0 Benign prostatic hyperplasia without lower urinary tract symptoms; I25.10 Atherosclerotic heart disease of native coronary artery without angina pectoris; R79.89 Other specified abnormal findings of blood chemistry; M54.41 Lumbago with sciatica, right side; M54.42 Lumbago with sciatica, left side; G89.29 Other chronic pain; F32.9 Major depressive disorder, single episode, unspecified; F41.9 Anxiety disorder, unspecified; Z87.891 Personal history of nicotine dependence; G25.81 Restless legs syndrome; M79.89 Other specified soft tissue disorders; Z79.899 Other long term (current) drug therapy; Z79.82 Long term (current) use of aspirin; Z79.51 Long term (current) use of inhaled steroids; Z88.8 Allergy status to other drugs, medicaments and biological substances; Z88.5 Allergy status to narcotic agent; Z87.820 Personal history of traumatic brain injury; Z87.11 Personal history of peptic ulcer disease; Z90.49 Acquired absence of other specified parts of digestive tract; Z83.3 Family history of diabetes mellitus; Z80.8 Family history of malignant neoplasm of other organs or systems
CPT/HCPCS: 36415; 71046; 71275; 80053; 80061; 82550; 82553; 83735; 84484; 85025; 85379; 85610; 85730; 93005; 94760; 99285

== ENCOUNTER 2018-11-12 04:37 | Observation (INO) | payer MEDICARE ==
[2018-11-12 05:20] LABS: Basophils % (A) 1 %; Eosinophils # (A) 0.2 k/uL (0-0.7); Eosinophils % (A) 3 %; HCT 43.4 % (39.0-53.0); Lymphocytes # (A) 2.1 k/uL (1.0-4.8); Lymphocytes % (A) 24 %; MCH 30.2 pg (25.0-35.0); MCHC 32.3 g/dL (31.0-37.0); MCV 93.3 fL (80.0-100.0); Mean Platelet Volume 6.4; Monocytes # (A) 0.8 k/uL (0-1.0); Monocytes % (A) 9 %; Neutrophils # (A) 5.7 k/uL (1.3-7.7); Neutrophils % (A) 63 %; Platelet Count 299 k/uL (150-450); RBC 4.66 m/uL (4.30-5.90); RDW 13.8 % (11.5-15.5); WBC 9.1 k/uL (3.8-10.6)
--- NOTE | 2018-11-12 05:28 | XR ---
EXAM: XR Chest, 1 View CLINICAL HISTORY: ITS.REASON XR Reason: chest pain TECHNIQUE: Frontal view of the chest. COMPARISON: Chest radiograph on 05/09/2018 FINDINGS: Hardware: None. Lungs/pleura: Question pulmonary vasculature congestion. No focal consolidation. No pleural effusion or pneumothorax. Heart/mediastinum: Stable mild enlargement of the cardiac silhouette. Soft tissues: Unremarkable. Bones: No acute fracture. Degenerative changes of the spine. Upper abdomen: Normal. IMPRESSION: Question pulmonary vasculature congestion. No focal consolidation.
[2018-11-12 05:31] LABS: Albumin 3.7 g/dL (3.5-5.0); Calcium 9.3 mg/dL (8.4-10.2); Magnesium 2.1 mg/dL (1.6-2.3); Total Bilirubin 0.7 mg/dL (0.2-1.3); Total Protein 6.8 g/dL (6.3-8.2)
[2018-11-12 05:34] LABS: Creatine Kinase 51 U/L (55-170)
[2018-11-12 05:35] LABS: Partial Thromboplastin Time 23.6 sec (22.0-30.0); Prothrombin Time 10.9 sec (9.0-12.0)
[2018-11-12 05:38] LABS: D-Dimer 0.94 mg/L FEU (<0.60)
[2018-11-12 05:47] LABS: Creatine Kinase MB 0.9 ng/mL (0.0-2.4); Troponin I <0.012 ng/mL (0.000-0.034)
--- NOTE | 2018-11-12 06:42 | CT ---
EXAM: CT Angiography Chest With Intravenous Contrast CLINICAL HISTORY: Chest pain TECHNIQUE: Axial computed tomographic angiography images of the chest with intravenous contrast using pulmonary embolism protocol. CTDI is 28.3 mGy and DLP is 697.2 mGy-cm. This CT exam was performed using one or more of the following dose reduction techniques: automated exposure control, adjustment of the mA and/or kV according to patient size, and/or use of iterative reconstruction technique. MIP reconstructed images were created and reviewed. Coronal and sagittal reformatted images were created and reviewed. COMPARISON: No relevant prior studies available. FINDINGS: Pulmonary arteries: Unremarkable. No pulmonary embolism. Aorta: No acute findings. No thoracic aortic aneurysm. Lungs: Unremarkable. No mass. No consolidation. Pleural space: Unremarkable. No significant effusion. No pneumothorax. Heart: Unremarkable. No cardiomegaly. No significant pericardial effusion. No evidence of RV dysfunction. Bones/joints: Moderate degenerative changes. Suspect osteopenia. Soft tissues: Unremarkable. Lymph nodes: Unremarkable. No enlarged lymph nodes. Visualized abdomen: Questionable fatty liver. IMPRESSION: No pulmonary embolism. No thoracic aortic aneurysm or dissection. No acute findings
--- NOTE | 2018-11-12 07:08 | ED ---
Chest Pain HPI - General Chief Complaint: Chest Pain Stated Complaint: Chest Pain Time Seen by Provider: 11/12/18 05:06 Source: EMS Mode of arrival: EMS Limitations: no limitations - History of Present Illness Initial Comments: This patient is 68-year-old man complaining of chest pain that is intermittent, sharp, moderate severity. He states the pains have been going on intermittently for weeks. Patient was concerned because he had trouble some snow yesterday and now the pain seems to be a bit more prominent. MD Complaint: chest pain -: week(s) Onset: during rest Pain Location: substernal Pain Radiation: none Severity: moderate Quality: sharp Consistency: intermittent Improves With: nothing Worsens With: nothing Treatments Prior to Arrival: none - Related Data Home Medications Medication Instructions Recorded Confirmed Fenofibrate,Micronized 134 mg PO HS 11/28/14 11/12/18 [Fenofibrate] Ranitidine HCl [Zantac] 300 mg PO HS 08/13/17 11/12/18 Tamsulosin HCl [Flomax] 0.8 mg PO HS 08/13/17 11/12/18 Aspirin [Adult Low Dose Aspirin EC] 81 mg PO QAM 10/22/17 11/12/18 Melatonin 3 mg PO HS PRN 10/22/17 11/12/18 traZODone HCL [Desyrel] 200 mg PO HS 02/25/18 11/12/18 Amitriptyline HCl [Elavil] 25 mg PO HS 05/09/18 11/12/18 Carvedilol [Coreg] 25 mg PO BID 05/09/18 11/12/18 Fluticasone Nasal [place] [Flonase 1 spray EA NOSTRIL DAILY 05/09/18 11/12/18 Nasal [place]] LORazepam [Ativan] 0.5 mg PO Q6H PRN 05/09/18 11/12/18 PARoxetine HCL [Paxil] 40 mg PO DAILY 11/12/18 11/12/18 amLODIPine [Norvasc] 5 mg PO HS 11/12/18 11/12/18 Previous Rx's Medication Instructions Recorded Baclofen 5 mg PO TID PRN #1 02/27/18 Nitroglycerin Sl Tabs [Nitrostat] 0.4 mg SUBLINGUAL Q5M PRN #20 tab 11/13/18 hydrALAZINE HCL [Apresoline] 25 mg PO BID #60 tab 11/13/18 Allergies Allergy/AdvReac Type Severity Reaction Status Date / Time atorvastatin [From Lipitor] Allergy Unknown Verified 11/12/18 08:18 codeine AdvReac Nausea & Verified 11/12/18 08:18 Vomiting gabapentin AdvReac Hallucinati Verified 11/12/18 08:18 ons Review of Systems ROS Statement: Those systems with pertinent positive or pertinent negative responses have been documented in the HPI. ROS Other: All systems not noted in ROS Statement are negative. Constitutional: Denies: fever, chills ENT: Denies: throat pain Respiratory: Denies: cough, dyspnea Cardiovascular: Reports: chest pain, orthopnea. Denies: palpitations, syncope Gastrointestinal: Denies: abdominal pain, nausea, vomiting Genitourinary: Denies: dysuria, hematuria Musculoskeletal: Denies: back pain Skin: Denies: rash Neurological: Denies: headache, weakness, numbness EKG Findings - EKG Results: EKG: interpreted by MICAH SOTO, sinus rhythm (Rate 67 bpm), normal axis, normal QRS, normal ST/T, no acute changes Past Medical History Past Medical History: Asthma, COPD, CVA/TIA, GERD/Reflux, Hyperlipidemia, Osteoarthritis (OA), Prostate Disorder, Skin Disorder Additional Past Medical History / Comment(s): Recent bilateral leg swelling which pt states is d/t neurontin, restless Leg Syndrome, low back pain and bilateral sciatica, hiatal hernia, stomach ulcer, TIA 8 years ago, vertigo, past concussion from football injury. History of Any Multi-Drug Resistant Organisms: None Reported Past Surgical History: Appendectomy, Cholecystectomy, Heart Catheterization, Tonsillectomy Additional Past Surgical History / Comment(s): Cardiac cath 10/29/17 normal, cyst removed from right hand, colonoscopy/polypectomy Past Anesthesia/Blood Transfusion Reactions: Motion Sickness Additional Past Anesthesia/Blood Transfusion Reaction / Comment(s): claustrophobia Past Psychological History: Anxiety, Depression Smoking Status: Former smoker Past Alcohol Use History: None Reported Past Drug Use History: None Reported - Past Family History Mother Family Medical History: Diabetes Mellitus Additional Family Medical History / Comment(s): Mother at the age of 86yrs. Father Family Medical History: Cancer Additional Family Medical History / Comment(s): Throat cancer and at the age of 50yrs. General Exam Limitations: no limitations General appearance: alert, in no apparent distress, obese Head exam: Present: atraumatic, normocephalic Eye exam: Present: normal appearance. Absent: scleral icterus, conjunctival injection Neck exam: Present: normal inspection, full ROM Respiratory exam: Present: normal lung sounds bilaterally. Absent: respiratory distress, wheezes, rales, rhonchi, stridor Cardiovascular Exam: Present: regular rate, normal rhythm, normal heart sounds. Absent: systolic murmur, diastolic murmur, rubs, gallop GI/Abdominal exam: Present: soft. Absent: distended, tenderness, guarding, rebound, mass Extremities exam: Present: normal inspection, normal capillary refill. Absent: pedal edema, calf tenderness Back exam: Present: normal inspection. Absent: CVA tenderness (R), CVA tenderness (L) Neurological exam: Present: alert Skin exam: Present: warm, dry, intact, normal color. Absent: rash Course Vital Signs 11/12/18 11/12/18 11/12/18 04:41 04:58 05:44 Temperature 98.3 F 98.1 F Pulse Rate 68 71 Respiratory 20 20 20 Rate Blood Pressure 178/82 168/84 O2 Sat by Pulse 94 L 98 Oximetry 11/12/18 11/12/18 07:00 07:58 Temperature 98.4 F Pulse Rate 62 63 Respiratory 18 18 Rate Blood Pressure 159/82 180/85 O2 Sat by Pulse 99 95 Oximetry Chest Pain MDM - MDM Shouldn't is 68-year-old man presenting with chest pain that has some typical but atypical features. Will be admitted for telemetry monitoring and serial cardiac enzymes. Disposition Clinical Impression: Chest pain Disposition: ADMITTED IP TO THIS HOSP Condition: Fair Is patient prescribed a controlled substance at d/c from ED?: No
[2018-11-12] MEDS ORDERED: MAG HYDROX/AL HYDROX/SIMETH 30 ML, HYOSCYAMINE ELIXIR 10 ML, CIMETIDINE HCL 300 MG, LID... PO STA ×4 (07:38)
[2018-11-12] MEDS ORDERED: NITROGLYCERIN SL TABS 0.4 MG TAB SUBLINGUAL PRN (07:47)
[2018-11-12] MEDS ORDERED: LORazepam 0.5 MG TAB PO PRN (07:50)
[2018-11-12] MEDS ORDERED: BACLOFEN 10 MG TAB PO PRN (07:50)
[2018-11-12] MEDS ORDERED: MELATONIN 3 MG TABLET PO PRN (07:50)
[2018-11-12 11:35] LABS: Creatine Kinase 46 U/L (55-170)
[2018-11-12 11:48] LABS: Creatine Kinase MB 0.8 ng/mL (0.0-2.4); Troponin I <0.012 ng/mL (0.000-0.034)
[2018-11-12] MEDS: amLODIPine 5 MG TAB PO SCH (12:18)
[2018-11-12] MEDS: CARVEDILOL 12.5 MG TAB PO SCH ×2 (12:18→16:52)
[2018-11-12] MEDS: FENOFIBRATE 160 MG TAB PO SCH (12:18)
[2018-11-12] MEDS: PARoxetine 20 MG TAB PO SCH (12:19)
--- NOTE | 2018-11-12 14:54 | P.CRDCN ---
History of Present Illness Consult date: 11/12/18 Consult reason: chest pain Chief complaint: Sharp internittent chest pain. History of present illness: This is a 68-year-old male. Presents this date complaining of chest pain that is intermittent, sharp, causing nausea and shortness of breath. Pain is at left chest sternal border and left shoulder. His chest pain discomfort is worse with exertion. Patient states chest pains have been going on intermittently for weeks. Patient states he was shoveling snow yesterday and the pain seems to be more consistent and prominent. Patient also states he has, "pressure of the head on the left side." Pt states it is no a headache but, "pressure." Patient is supposed to visit with his laboratory coordinator on Thursday in [place]. Patient has catheterization history from October 2017 showing mild non-obstructive CAD. Patient also says he has a history of GERD. EKG shows SR, rate of 67 beats per minute. Troponins are normal x 1. Chest x-ray showes borderline pulmonary edema. Elevated D-dimer. CTA of chest negative for PE or negative for Thoracic aortic dissection. No recent echo. Review of Systems At the time of my exam: CONSTITUTIONAL: Denies fever. Denies chills. EYES: Denies blurred vision. Denies vision changes. Denies eye pain. EARS, NOSE, MOUTH & THROAT: Denies headache but states he had "pressure" on the LEFT side of his head. Denies sore throat. Denies ear pain. CARDIOVASCULAR: Reports LEFT sternal border chest pain/LEFT shoulder. Reports shortness of breath with exertion. Denies orthopnea. Denies PND. Denies palpitations. RESPIRATORY: Denies cough. GASTROINTESTINAL: Denies abdominal pain. Denies diarrhea. Denies constipation. Denies nausea. Denies vomiting. MUSCULOSKELETAL: Reports myalgias of LEFT shoulder. INTEGUMENTARY: Denies pruitis. Denies rash. NEUROLOGIC: Denies numbness. Denies tingling. Denies weakness. PSYCHIATRIC: Denies anxiety. Denies depression. ENDOCRINE: Denies fatigue. Denies weight change. Denies polydipsia. Denies polyurina. GENITOURINARY: Denies burning, hematuria or urgency with micturation. HEMATOLOGIC: Denies history of anemia. Denies bleeding. Past Medical History Past Medical History: Asthma, COPD, CVA/TIA, GERD/Reflux, Hyperlipidemia, Hypertension, Osteoarthritis (OA), Prostate Disorder, Skin Disorder Additional Past Medical History / Comment(s): Recent bilateral leg swelling which pt states is d/t neurontin, RLS, low back pain and bilateral sciatica, hiatal hernia, stomach ulcer, TIA 8 years ago, vertigo, BPH, past concussion from football injury. History of Any Multi-Drug Resistant Organisms: None Reported Past Surgical History: Appendectomy, Cholecystectomy, Heart Catheterization, Tonsillectomy Additional Past Surgical History / Comment(s): Epidural injection 11/08/17, cardiac cath 10/29/17 normal, cyst removed from right hand, colonoscopy/ polypectomy Past Anesthesia/Blood Transfusion Reactions: Motion Sickness Additional Past Anesthesia/Blood Transfusion Reaction / Comment(s): claustrophobia Smoking Status: Former smoker - Past Family History Mother Family Medical History: Diabetes Mellitus Additional Family Medical History / Comment(s): Mother at the age of 86yrs. Father Family Medical History: Cancer Additional Family Medical History / Comment(s): Throat cancer and at the age of 50yrs. Medications and Allergies Home Medications Medication Instructions Recorded Confirmed Type Fenofibrate,Micronized 134 mg PO HS 11/28/14 11/12/18 History [Fenofibrate] Ranitidine HCl [Zantac] 300 mg PO HS 08/13/17 11/12/18 History Tamsulosin HCl [Flomax] 0.8 mg PO HS 08/13/17 11/12/18 History Aspirin [Adult Low Dose Aspirin EC] 81 mg PO QAM 10/22/17 11/12/18 History Melatonin 3 mg PO HS PRN 10/22/17 11/12/18 History traZODone HCL [Desyrel] 200 mg PO HS 02/25/18 11/12/18 History Baclofen 5 mg PO TID PRN #1 02/27/18 11/12/18 Rx Naproxen [Naprosyn] 250 mg PO BID PRN #20 tab 02/27/18 11/12/18 Rx Amitriptyline HCl [Elavil] 25 mg PO HS 05/09/18 11/12/18 History Carvedilol [Coreg] 25 mg PO BID 05/09/18 11/12/18 History Fluticasone Nasal [place] [Flonase 1 spray EA NOSTRIL DAILY 05/09/18 11/12/18 History Nasal [place]] LORazepam [Ativan] 0.5 mg PO Q6H PRN 05/09/18 11/12/18 History PARoxetine HCL [Paxil] 40 mg PO DAILY 11/12/18 11/12/18 History amLODIPine [Norvasc] 5 mg PO HS 11/12/18 11/12/18 History Allergies Allergy/AdvReac Type Severity Reaction Status Date / Time atorvastatin [From Lipitor] Allergy Unknown Verified 11/12/18 08:18 codeine AdvReac Nausea & Verified 11/12/18 08:18 Vomiting gabapentin AdvReac Hallucinati Verified 11/12/18 08:18 ons Physical Exam Vitals: Vital Signs Temp Pulse Pulse Resp BP BP Pulse Ox 11/12/18 12:00 97.3 F L 72 18 183/92 96 11/12/18 09:37 94 L 11/12/18 08:45 97.4 F L 74 18 184/68 94 L 11/12/18 07:58 63 18 180/85 95 11/12/18 07:00 98.4 F 62 18 159/82 99 11/12/18 05:44 98.1 F 71 20 168/84 98 11/12/18 04:58 20 11/12/18 04:41 98.3 F 68 20 178/82 94 L Intake and Output 11/11/18 11/12/18 11/12/18 22:59 06:59 14:59 Intake Total 458 Balance 458 Intake: Oral 458 Other: Weight 129.274 kg GENERAL: This is a 68 year old male in mild distress at the time of my examination. HEENT: Head is atraumatic, normocephalic. Pupils are equal, round. Sclerae anicteric. Conjunctivae are clear. Mucous membranes of the mouth are moist. Neck is supple. There is no jugular venous distention. No carotid bruit is heard. LUNGS: Distant lung sounds to auscultation, no crackles, no wheezes, no rales or no rhonchi. No chest wall tenderness is noted on palpation or with deep breathing. HEART: Regular rate and rhythm without murmurs, rubs or gallops. S1 and S2 heard. ABDOMEN: Soft, nontender. Bowel sounds are heard. No organomegaly noted. EXTREMITIES: Evidence of peripheral edema on BLE 2-3+. No calf tenderness noted. VASCULAR: Radial and dorsalis pedis pulses palpated, no evidence of clubbing. NEUROLOGIC: Patient is awake, alert and oriented x3. Results 11/12/18 04:15 11/12/18 04:15 Cardiac Enzymes 11/12/18 11/12/18 11/12/18 Range/Units 04:15 04:15 10:37 AST 20 (17-59) U/L CK-MB (CK-2) 0.9 0.8 (0.0-2.4) ng/mL Troponin I <0.012 <0.012 (0.000-0.034) ng/mL Coagulation 11/12/18 Range/Units 04:15 PT 10.9 (9.0-12.0) sec APTT 23.6 (22.0-30.0) sec CBC 11/12/18 Range/Units 04:15 WBC 9.1 (3.8-10.6) k/uL RBC 4.66 (4.30-5.90) m/uL Hgb 14.0 (13.0-17.5) gm/dL Hct 43.4 (39.0-53.0) % Plt Count 299 (150-450) k/uL Comprehensive Metabolic Panel 11/12/18 Range/Units 04:15 Sodium 142 (137-145) mmol/L Potassium 4.0 (3.5-5.1) mmol/L Chloride 100 (98-107) mmol/L Carbon Dioxide 35 H (22-30) mmol/L BUN 13 (9-20) mg/dL Creatinine 0.99 (0.66-1.25) mg/dL Glucose 107 H (74-99) mg/dL Calcium 9.3 (8.4-10.2) mg/dL AST 20 (17-59) U/L ALT 32 (21-72) U/L Alkaline Phosphatase 45 (38-126) U/L Total Protein 6.8 (6.3-8.2) g/dL Albumin 3.7 (3.5-5.0) g/dL Current Medications Generic Name Dose Route Start Last Admin Trade Name Freq PRN Reason Stop Dose Admin Amitriptyline HCl 25 mg 11/12/18 21:00 Elavil PO HS DESTINI Amlodipine Besylate 5 mg 11/12/18 09:00 11/12/18 12:18 Norvasc PO 5 mg DAILY DESTINI Administration Aspirin 325 mg 11/13/18 09:00 Aspirin PO DAILY DESTINI Baclofen 5 mg 11/12/18 07:50 Lioresal PO TID PRN Spasms Carvedilol 25 mg 11/12/18 09:00 11/12/18 12:18 Coreg PO 25 mg BID-W/MEALS DESTINI Administration Famotidine 40 mg 11/12/18 21:00 Pepcid PO HS DESTINI Fenofibrate 160 mg 11/12/18 09:00 11/12/18 12:18 Lofibra PO 160 mg DAILY DESTINI Administration Lorazepam 0.5 mg 11/12/18 07:50 Ativan PO Q6H PRN Anxiety Melatonin 3 mg 11/12/18 07:50 Melatonin PO HS PRN sleep Nitroglycerin 0.4 mg 11/12/18 07:47 Nitrostat SUBLINGUAL Q5M PRN Chest Pain Paroxetine HCl 40 mg 11/12/18 09:00 11/12/18 12:19 Paxil PO 40 mg DAILY DESTINI Administration Tamsulosin HCl 0.8 mg 11/12/18 21:00 Flomax PO HS DESTINI Trazodone HCl 200 mg 11/12/18 21:00 Desyrel PO HS DESTINI Intake and Output 11/11/18 11/12/18 11/12/18 22:59 06:59 14:59 Intake Total 458 Balance 458 Intake: Oral 458 Other: Weight 129.274 kg 11/12/18 04:15 11/12/18 04:15 - EKG Interpretation EKG: sinus rhythm Assessment and Plan (1) Chest pain Current Visit: No Status: Acute Code(s): R07.9 - CHEST PAIN, UNSPECIFIED SNOMED Code(s): 47764010 (2) Hyperlipidemia Current Visit: No Status: Acute Code(s): E78.5 - HYPERLIPIDEMIA, UNSPECIFIED SNOMED Code(s): 83227051 (3) Hypertension Current Visit: No Status: Acute Code(s): I10 - ESSENTIAL (PRIMARY) HYPERTENSION SNOMED Code(s): 03755309 Plan: Plan for continued same medical/medication regime. Atypical chest pain. Awaiting additional troponin level. Pt able to eat cardiac diet. Plan of care discussed with patient. Will follow.
[2018-11-12] MEDS ORDERED: FUROSEMIDE 10 MG/ML 4 ML VIAL IV STA (16:21)
--- NOTE | 2018-11-12 16:23 | P.HPIM ---
History of Present Illness This is a pleasant 68 years old male with past medical history of asthma/COPD, hyperlipidemia, hypertension, TIA, osteoarthritis, bilateral leg edema, restless leg syndrome, chronic low back pain and bilateral sciatica Who presents because of chest pain, patient woke up 3 am in the morning with filling of needles in the left upper chest, nonradiating , nonspecific in severity, he had similar episodes about 6 months ago and 2 years ago and have been told this is from gas. No associated nausea vomiting, no sweating, no dyspnea. However patient states that when he shelved the snow 2 days ago he felt short of breath. On admission patient was hypertensive. He has elevated d-dimer with negative CTPA for pulmonary embolism. Chest x-ray: Possible vascular congestion. Patient has been evaluated by car repairer pullman and recommended to keep patient for monitoring. Review of Systems CONSTITUTIONAL: No fever, no malaise, no fatigue. HEENT: No recent visual problems or hearing problems. Denied any sore throat. CARDIOVASCULAR: No orthopnea, PND, no palpitations, no syncope. PULMONARY: No shortness of breath, no cough, no hemoptysis. GASTROINTESTINAL: No diarrhea, no nausea, no vomiting, no abdominal pain. Normoactive bowel sounds. NEUROLOGICAL: No headaches, no weakness, no numbness. HEMATOLOGICAL: Denies any bleeding or petechiae. GENITOURINARY: Denies any burning micturition, frequency, or urgency. MUSCULOSKELETAL/RHEUMATOLOGICAL: Denies any joint pain, swelling, or any muscle pain. ENDOCRINE: Denies any polyuria or polydipsia. Past Medical History Past Medical History: Asthma, COPD, CVA/TIA, GERD/Reflux, Hyperlipidemia, Hypertension, Osteoarthritis (OA), Prostate Disorder, Skin Disorder Additional Past Medical History / Comment(s): Recent bilateral leg swelling which pt states is d/t neurontin, RLS, low back pain and bilateral sciatica, hiatal hernia, stomach ulcer, TIA 8 years ago, vertigo, BPH, past concussion from football injury. History of Any Multi-Drug Resistant Organisms: None Reported Past Surgical History: Appendectomy, Cholecystectomy, Heart Catheterization, Tonsillectomy Additional Past Surgical History / Comment(s): Epidural injection 11/08/17, cardiac cath 10/29/17 normal, cyst removed from right hand, colonoscopy/ polypectomy Past Anesthesia/Blood Transfusion Reactions: Motion Sickness Additional Past Anesthesia/Blood Transfusion Reaction / Comment(s): claustrophobia Smoking Status: Former smoker - Past Family History Mother Family Medical History: Diabetes Mellitus Additional Family Medical History / Comment(s): Mother at the age of 86yrs. Father Family Medical History: Cancer Additional Family Medical History / Comment(s): Throat cancer and at the age of 50yrs. Medications and Allergies Home Medications Medication Instructions Recorded Confirmed Type Fenofibrate,Micronized 134 mg PO HS 11/28/14 11/12/18 History [Fenofibrate] Ranitidine HCl [Zantac] 300 mg PO HS 08/13/17 11/12/18 History Tamsulosin HCl [Flomax] 0.8 mg PO HS 08/13/17 11/12/18 History Aspirin [Adult Low Dose Aspirin EC] 81 mg PO QAM 10/22/17 11/12/18 History Melatonin 3 mg PO HS PRN 10/22/17 11/12/18 History traZODone HCL [Desyrel] 200 mg PO HS 02/25/18 11/12/18 History Baclofen 5 mg PO TID PRN #1 02/27/18 11/12/18 Rx Naproxen [Naprosyn] 250 mg PO BID PRN #20 tab 02/27/18 11/12/18 Rx Amitriptyline HCl [Elavil] 25 mg PO HS 05/09/18 11/12/18 History Carvedilol [Coreg] 25 mg PO BID 05/09/18 11/12/18 History Fluticasone Nasal [place] [Flonase 1 spray EA NOSTRIL DAILY 05/09/18 11/12/18 History Nasal [place]] LORazepam [Ativan] 0.5 mg PO Q6H PRN 05/09/18 11/12/18 History PARoxetine HCL [Paxil] 40 mg PO DAILY 11/12/18 11/12/18 History amLODIPine [Norvasc] 5 mg PO HS 11/12/18 11/12/18 History Allergies Allergy/AdvReac Type Severity Reaction Status Date / Time atorvastatin [From Lipitor] Allergy Unknown Verified 11/12/18 08:18 codeine AdvReac Nausea & Verified 11/12/18 08:18 Vomiting gabapentin AdvReac Hallucinati Verified 11/12/18 08:18 ons Physical Exam Vitals: Vital Signs Temp Pulse Pulse Pulse Resp BP BP 11/12/18 15:48 97.9 F 61 18 189/99 11/12/18 12:00 97.3 F L 72 18 11/12/18 09:37 11/12/18 08:45 97.4 F L 74 18 11/12/18 07:58 63 18 180/85 11/12/18 07:00 98.4 F 62 18 159/82 11/12/18 05:44 98.1 F 71 20 168/84 11/12/18 04:58 20 11/12/18 04:41 98.3 F 68 20 178/82 BP Pulse Ox 11/12/18 15:48 96 11/12/18 12:00 183/92 96 11/12/18 09:37 94 L 11/12/18 08:45 184/68 94 L 11/12/18 07:58 95 11/12/18 07:00 99 11/12/18 05:44 98 11/12/18 04:58 11/12/18 04:41 94 L Intake and Output 11/12/18 11/12/18 11/12/18 06:59 14:59 22:59 Intake Total 458 Balance 458 Intake: Oral 458 Other: # Voids 1 Weight 129.274 kg GENERAL: The patient is alert and oriented x3, not in any acute distress. Well developed, well nourished. HEENT: Pupils are round and equally reacting to light. EOMI. No scleral icterus. No conjunctival pallor. Normocephalic, atraumatic. No pharyngeal erythema. No thyromegaly. CARDIOVASCULAR: S1 and S2 present. No murmurs, rubs, or gallops. PULMONARY: Chest is clear to auscultation, no wheezing or crackles. ABDOMEN: Soft, nontender, nondistended, normoactive bowel sounds. No palpable organomegaly. MUSCULOSKELETAL: No joint swelling or deformity. EXTREMITIES: No cyanosis, clubbing, or pedal edema. NEUROLOGICAL: Gross neurological examination did not reveal any focal deficits. SKIN: No rashes. Results CBC & Chem 7: 11/12/18 04:15 11/12/18 04:15 Labs: Abnormal Lab Results - Last 24 Hours (Table) 11/12/18 11/12/18 11/12/18 Range/Units 04:15 04:15 04:15 D-Dimer 0.94 H (<0.60) mg/L FEU Carbon Dioxide 35 H (22-30) mmol/L Glucose 107 H (74-99) mg/dL Total Creatine Kinase 51 L (55-170) U/L 11/12/18 Range/Units 10:37 D-Dimer (<0.60) mg/L FEU Carbon Dioxide (22-30) mmol/L Glucose (74-99) mg/dL Total Creatine Kinase 46 L (55-170) U/L Thrombosis Risk Factor Assmnt - Choose All That Apply Any of the Below Risk Factors Present?: Yes Each Factor Represents 1 point: Abnormal pulmonary function (COPD), Obesity ( BMI >25) Other Risk Factors: Yes Each Risk Factor Represents 2 Points: Age 61-74 years Other congenital or acquired thrombophilia - If yes, enter type in comment: No Thrombosis Risk Factor Assessment Total Risk Factor Score: 4 Thrombosis Risk Factor Assessment Level: Moderate Risk Assessment and Plan Assessment: Chest pain, rule out cardiac causes. Hypertensive urgency Pulmonary congestion on chest x-ray History of COPD, not in acute exacerbation Hyperlipidemia Hypertension History of TIA Surface arthritis The lateral leg edema Restless leg syndrome Plan: This is a pleasant 68 years old male who presents because of chest pain. We'll do serial troponins. EKG. Cardiology consult. Continue with aspirin we will add 1 dose of Lasix and add hydralazine for high blood pressure. Labs and medication were reviewed.. Continue same treatment. Continue with symptomatic treatment. Resume home medication. Monitor lytes and vitals. DVT and GI prophylaxis. Further recommendations of the clinical course of the patient DVT prophylaxis: Subcutaneous heparin GI Prophylaxis: Pepcid Prognosis is guarded
[2018-11-12 18:13] LABS: Creatine Kinase MB 0.9 ng/mL (0.0-2.4); Troponin I 0.012 ng/mL (0.000-0.034)
[2018-11-12] MEDS: HEPARIN SODIUM,PORCINE 5,000 UNIT/ML 1 ML VIAL SQ SCH (20:16)
[2018-11-12] MEDS: hydrALAZINE HCL 25 MG TAB PO SCH (20:16)
[2018-11-12] MEDS ORDERED: traZODone HCL 100 MG TAB PO SCH (21:00)
[2018-11-12] MEDS ORDERED: AMITRIPTYLINE HCL 25 MG TAB PO SCH (21:00)
[2018-11-12] MEDS ORDERED: FAMOTIDINE 20 MG TAB PO SCH (21:00)
[2018-11-12] MEDS ORDERED: TAMSULOSIN 0.4 MG CAP.ER.24H PO SCH (21:00)
[2018-11-13 07:43] LABS: Calcium 8.9 mg/dL (8.4-10.2); Potassium 3.8 mmol/L (3.5-5.1)
[2018-11-13] MEDS: HEPARIN SODIUM,PORCINE 5,000 UNIT/ML 1 ML VIAL SQ SCH (08:17)
[2018-11-13] MEDS: amLODIPine 5 MG TAB PO SCH (08:17)
[2018-11-13] MEDS: FENOFIBRATE 160 MG TAB PO SCH (08:17)
[2018-11-13] MEDS: CARVEDILOL 12.5 MG TAB PO SCH (08:17)
[2018-11-13] MEDS: hydrALAZINE HCL 25 MG TAB PO SCH (08:17)
[2018-11-13] MEDS: PARoxetine 20 MG TAB PO SCH (08:18)
[2018-11-13] MEDS ORDERED: ASPIRIN 325 MG TAB PO SCH (09:00)
[2018-11-13] MEDS ORDERED: NAPROXEN 250 MG TAB PO PRN (09:30)
--- NOTE | 2018-11-13 11:28 | PN ---
PROGRESS NOTE This patient was admitted with atypical chest pain. EKGs and cardiac enzymes are normal. Patient's echocardiogram revealed normal left ventricular systolic function. The patient's blood pressure now is 155/88 mmHg. First and second heart sounds are normal. Lungs are clinically clear to auscultation and percussion. We will continue the patient on the current medications. He will be discharged home and follow up with Dr. Jordan. MMODL / IJN: [id number] /
[2018-11-13 12:09] VITALS: PULSE 63
--- NOTE | 2018-11-13 12:19 | P.DS ---
Providers Date of admission: 11/12/18 07:47 Attending physician: Omar Amaro Consults: 11/12/18 07:47 Consult Physician Routine Consulting Provider: Kirit Herrera Consult Reason/Comments: chest pain Do you want consulting provider notified?: Yes Primary care physician: Vincent Barbie [facility] Course: This is a pleasant 68 years old male with past medical history of asthma/COPD, hyperlipidemia, hypertension, TIA, osteoarthritis, bilateral leg edema, restless leg syndrome, chronic low back pain and bilateral sciatica Who presents because of chest pain, patient woke up 3 am in the morning with filling of needles in the left upper chest, nonradiating , nonspecific in severity, he had similar episodes about 6 months ago and 2 years ago and have been told this is from gas. No associated nausea vomiting, no sweating, no dyspnea. However patient states that when he shelved the snow 2 days ago he felt short of breath. On admission patient was hypertensive. He has elevated d-dimer with negative CTPA for pulmonary embolism. Chest x-ray: Possible vascular congestion. He received 1 dose of Lasix and he is not dyspneic currently. Patient has been evaluated by physics instructor and cleared him for discharge. Patient is currently chest pain-free and he denies any other symptoms. Hydralazine has been added for better blood pressure controlled. Blood pressure is 155/82, compared to yesterday 180/82 Problems and management plan was discussed with the patient and he verbalized understanding and acceptance Patient was found stable and can be discharged home however he needs follow-up as an outpatient. Appointment was made with cardiology as an outpatient and patient agrees with the appointments and Mic and he said he will follow-up Gen: patient is a AAOx3, no distress CVS: S1-S2, RRR, no murmur Lungs: B/L CTA, no wheezing Abdomen: soft, no distention, no tenderness, positive bowel sounds Extremity: no leg edema or induration Time spent more than 35 minutes Plan - Discharge Summary Discharge Rx Participant: No New Discharge Prescriptions: New hydrALAZINE HCL [Apresoline] 25 mg PO BID #60 tab Nitroglycerin Sl Tabs [Nitrostat] 0.4 mg SUBLINGUAL Q5M PRN #20 tab PRN Reason: Chest Pain Continue Fenofibrate,Micronized [Fenofibrate] 134 mg PO HS Ranitidine HCl [Zantac] 300 mg PO HS Tamsulosin HCl [Flomax] 0.8 mg PO HS Aspirin [Adult Low Dose Aspirin EC] 81 mg PO QAM Melatonin 3 mg PO HS PRN PRN Reason: sleep traZODone HCL [Desyrel] 200 mg PO HS Baclofen 5 mg PO TID PRN #1 PRN Reason: Spasms LORazepam [Ativan] 0.5 mg PO Q6H PRN PRN Reason: Anxiety Fluticasone Nasal [place] [Flonase Nasal [place]] 1 spray EA NOSTRIL DAILY Carvedilol [Coreg] 25 mg PO BID Amitriptyline HCl [Elavil] 25 mg PO HS amLODIPine [Norvasc] 5 mg PO HS PARoxetine HCL [Paxil] 40 mg PO DAILY Discontinued Naproxen [Naprosyn] 250 mg PO BID PRN #20 tab PRN Reason: Pain Discharge Medication List Fenofibrate,Micronized [Fenofibrate] 134 mg PO HS 11/28/14 [History] Ranitidine HCl [Zantac] 300 mg PO HS 08/13/17 [History] Tamsulosin HCl [Flomax] 0.8 mg PO HS 08/13/17 [History] Aspirin [Adult Low Dose Aspirin EC] 81 mg PO QAM 10/22/17 [History] Melatonin 3 mg PO HS PRN 10/22/17 [History] traZODone HCL [Desyrel] 200 mg PO HS 02/25/18 [History] Baclofen 5 mg PO TID PRN #1 02/27/18 [Rx] Amitriptyline HCl [Elavil] 25 mg PO HS 05/09/18 [History] Carvedilol [Coreg] 25 mg PO BID 05/09/18 [History] Fluticasone Nasal [place] [Flonase Nasal [place]] 1 spray EA NOSTRIL DAILY 05/09/18 [History] LORazepam [Ativan] 0.5 mg PO Q6H PRN 05/09/18 [History] PARoxetine HCL [Paxil] 40 mg PO DAILY 11/12/18 [History] amLODIPine [Norvasc] 5 mg PO HS 11/12/18 [History] Nitroglycerin Sl Tabs [Nitrostat] 0.4 mg SUBLINGUAL Q5M PRN #20 tab 11/13/18 [Rx ] hydrALAZINE HCL [Apresoline] 25 mg PO BID #60 tab 11/13/18 [Rx] Follow up Appointment(s)/Referral(s): Vincent Valentin MD [Primary Care Provider] - 1-2 days Hiral Jordan MD [STAFF PHYSICIAN] - 11/17/18 1:15 pm (Keep same appointment as previously scheduled with Dr. Jordan at the [facility]) Activity/Diet/Wound Care/Special Instructions: Cardiac diet Activity is limited till you see your doctor Discharge Disposition: HOME SELF-CARE
[2018-11-13 12:23] VITALS: BP 148/84; RESP 16; TEMP 98.2
== END 2018-11-13 13:52 | disposition home or self-care (01) ==
LOC: EC 04:37 → 1SOBS 07:47
PROVIDERS: ADMIT Hospitalist; ATTEND Hospitalist
DX: R07.2 Precordial pain (principal); R20.2 Paresthesia of skin; R60.0 Localized edema; R11.0 Nausea; R79.89 Other specified abnormal findings of blood chemistry; J44.9 Chronic obstructive pulmonary disease, unspecified; E78.5 Hyperlipidemia, unspecified; I10 Essential (primary) hypertension; I16.0 Hypertensive urgency; M19.90 Unspecified osteoarthritis, unspecified site; Z86.73 Personal history of transient ischemic attack (TIA), and cerebral infarction without residual deficits; G25.81 Restless legs syndrome; K21.9 Gastro-esophageal reflux disease without esophagitis; G89.29 Other chronic pain; M54.42 Lumbago with sciatica, left side; M54.41 Lumbago with sciatica, right side; I25.10 Atherosclerotic heart disease of native coronary artery without angina pectoris; R09.89 Other specified symptoms and signs involving the circulatory and respiratory systems; N40.0 Benign prostatic hyperplasia without lower urinary tract symptoms; F41.9 Anxiety disorder, unspecified; F32.9 Major depressive disorder, single episode, unspecified; E66.9 Obesity, unspecified; Z68.42 Body mass index [BMI] 45.0-49.9, adult; Z79.899 Other long term (current) drug therapy; Z79.82 Long term (current) use of aspirin; Z88.8 Allergy status to other drugs, medicaments and biological substances; Z88.5 Allergy status to narcotic agent; Z87.11 Personal history of peptic ulcer disease; Z87.891 Personal history of nicotine dependence; Z87.820 Personal history of traumatic brain injury; Z90.49 Acquired absence of other specified parts of digestive tract; Z83.3 Family history of diabetes mellitus; Z80.8 Family history of malignant neoplasm of other organs or systems
CPT/HCPCS: 96372 ×2; 96374; 99285; 36415; 94760; 93005; 85379; 80061; 80053; 80048; 82150; 82550; 82553; 83690; 83735; 84484; 85025; 85610; 85730; 71045; 71275; G0378 ×2; J1644 ×2; J1940; Q9967